=== PATIENT | female | born 1995 | race Caucasian/White ===

== ENCOUNTER 2025-01-01 09:42 | Outpatient (CLI) | payer BC, SELFPAY ==
--- NOTE | ~2025-01-01 | US_ITS ---
EXAMINATION: US OB <=14 wk fetus w TV DATE: 01/01/2025 10:15 INDICATION: Assess viability during first trimester presenting with cramping TECHNIQUE: Real-time pelvic ultrasound utilizing both a transvaginal and transabdominal probe was pe rformed. The interpreting radiologist was not present for the study. COMPARISON: None. FINDINGS: The uterus measures 8.7 x 4.4 x 5.6 cm. There is an intrauterine gestational sac.A yolk sac is ident ified but there is no discernible pole. The mean sac diameter measures 1.2 cm, which correlates with an estimated gestational age of 6 weeks and 0 days. The right ovary measures 2.5 x 1.5 x 1.5 cm. The left ovary measures 3.4 x 2.2 x 2.1 cm. Vascular sachi w identified in both ovaries on color Doppler. There is no free fluid in the pelvis. IMPRESSION: 1. Single intrauterine gestational sac with yolk sac but no discernible pole likely due to aminta y stage of . 2. Gestational age by ultrasound of 6 weeks 0 day(s) +/- 4 day(s) with ultrasound estimated date of delivery (CRAIG) of 08/27/2025. Reviewed, dictated and finalized at location A. RAL OFFICE REPAIRER SUPERVISOR IMPRESSION: 1. Single intrauterine gestational sac with yolk sac but no discernible p ole likely due to early stage of . 2. Gestational age by ultrasound of 6 weeks 0 day(s) +/- 4 day(s) with ultraso und estimated date of delivery (CRAIG) of 08/27/2025.
== END 2025-01-01 09:43 | disposition home or self-care (01) ==
PROVIDERS: PCP Obstetrics & Gynecology; Visit Provider Obstetrics & Gynecology
DX: O26.899 Other specified pregnancy related conditions, unspecified trimester (principal); Z3A.00 Weeks of gestation of pregnancy not specified
CPT/HCPCS: 76801; 76817

== ENCOUNTER 2025-01-08 10:21 | Outpatient (CLI) | payer BC, SELFPAY ==
--- NOTE | ~2025-01-08 | US_ITS ---
EXAMINATION: US OB <=14 wk fetus w TV DATE: 01/08/2025 11:11 INDICATION: Altered for supervision of normal during first trimester. TECHNIQUE: Real-time pelvic ultrasound utilizing both a transvaginal and transabdominal probe was pe rformed. The interpreting radiologist was not present for the study. COMPARISON: 01/01/2025 FINDINGS: The uterus measures 10.6 x 4.5 x 6.7 cm. There is an intrauterine gestational sac. A yolk sac and fe bandar pole are identified. The crown rump length measures 5 mm, which correlates with an estimated gest ational age of 6 weeks and 1 days. There is discernible rhythmic heart motion at the pole on the cine grayscale imaging. The right ovary measures 3.4 x 2.6 x 1.6 cm. The left ovary measures 3.6 x 2.1 x 1.7 cm. There is no free fluid in the pelvis. IMPRESSION: 1. Single living fetus with discernible heart motion on cine grayscale imaging. 2. Gestational age by ultrasound of 6 weeks 1 day(s) +/- 4 day(s) with ultrasound estimated date of delivery (CRAIG) of 09/02/2025. Reviewed, dictated and finalized at location B. CAL TRANSCRIPTION SUPERVISOR IMPRESSION: 1. Single living fetus with discernible heart motion on cine grayscale im aging. 2. Gestational age by ultrasound of 6 weeks 1 day(s) +/- 4 day(s) with ultraso und estimated date of delivery (CRAIG) of 09/02/2025.
== END 2025-01-08 10:22 | disposition home or self-care (01) ==
PROVIDERS: PCP Obstetrics & Gynecology; Visit Provider Student in an Organized Health Care Education/Training Program
DX: Z34.90 Encounter for supervision of normal pregnancy, unspecified, unspecified trimester (principal)
CPT/HCPCS: 76801; 76817

== ENCOUNTER 2025-01-08 16:37 | Outpatient (CLI) | payer BC, SELFPAY ==
[2025-01-08 17:50] LABS: Hematocrit 40.6 % (37.0-47.0); Hemoglobin 13.6 g/dL (12.0-15.0); Mean Corpuscular HGB Conc 33.5 g/dl (32-36); Mean Corpuscular Volume 89.4 fl (80-100); Mean Platelet Volume 8.7 fl (7.4-10.4); Platelet Count Result 301 k/mm3 (150-375); Red Blood Count 4.54 M/mm3 (4.2-5.4); Red Cell Distribution Width 12.2 % (11.5-14.5); White Blood Count 10.1 K/mm3 (4.5-10.0)
--- OUTSIDE RECORDS SUMMARY | 2025-01-08 18:28 | XMS_ITS | Encounter Summary ---
Author Organization [facility] Address [address] [place] [address] Phone Care Team Providers Care Mainframe Applications Developer Name Role Phone Provider, None Primary Care Provider Unavailabl e Encounter Details Date Type Department Care Team (Late st Contact Info) Description 11/22/2023 Lab Requisition [facility] [address] [place] [address] [place] [address] Encounter for pre-employment examination Social History Tobacco Use Types Packs/Day Years Used Date Smoking Tobacco: Never Assessed Comments Unknown Sex and Gender Information Value Date Recorded Sex Assigned at Not on file Legal Sex Female 10:34 AM AIR TRAFFIC CONTROL MANAGER Gender Identity Not on file Sexual Orientation Not on file documented as of this encounter Plan of Treatment Not on file documented as of this encounter Procedures Procedure Name Priority Date/Time Associated Diagnosis Comments QUANTIFERON-TB GOLD PLUS Routine 11/22/2023 10:00 AM AIR TRAFFIC CONTROL MANAGER Encounter for pre-employment examination documented in this encounter Results * QUANTIFERON-TB GOLD PLUS (11/22/2023 10:00 AM AIR TRAFFIC CONTROL MANAGER) NIL CONTROL 0.04 <8.01 IU/mL 11/24/2023 10:27 AM AIR TRAFFIC CONTROL MANAGER [facility] TB ANTIGEN 1 0.34 <0.35 IU/mL 11/24/2023 10:27 AM AIR TRAFFIC CONTROL MANAGER [facility] TB ANTIGEN 2 0.01 <0.35 IU/mL 11/24/2023 10:27 AM [facility] MITOGEN CONTROL 9.96 >0.49 IU/mL 11/24/19 10:27 AM [facility] INTEPRETATION TB NEGATIVE NEGATIVE, NEGATIVE (TB antigen response less than 25% of internal negative control value) 11/24/2023 10:27 AM [facility] Comment:No immune response t o Mycobacterium tuberculosis antigens was noted. M. tuberculosis infection unlikely. Blood No Phlebotomy Charged / Unknown 11/22/2023 10:00 AM [facility] 11/22/2023 1:03 PM AIR TRAFFIC CONTROL MANAGER Narrative [facility] [place] - 11/24/2023 10:27 AM [facility] A POSITIVE QUANTIFERON-TB GOLD PLUS RESULT SHOULD NOT BE THE SOLE OR DEFINITIVE BASIS FOR DETERMINING INFECTION WITH M.TUBERCULOSIS. Diagnosing or excluding tuberculosis disease, and assessing the probability of LTBI, requires a combination of epidemiological, historical, medical and diagnostic findings (e.g., acid fast bacilli (AFB) smear and culture, chest xray) that should be taken into account when interpreting QFT-Plus results. Furthermore, the magnitude of the measured gamma interferon level cannot be correlated to stage or degree of infection, level of immune responsiveness, or likelihood for progression to active disease. The Nil control adjusts for background (e.g., elevated levels of circulating gamma interferon or presence of heterophile antibodies). The Mitogen control serves as an internal positive control and verifies each specimen tested can produce a gamma interferon response. Low mitogen may occur with insufficient lymphocytes, reduced lymphocyte activity due to improper specimen handling, filling/mixing of the mitogen tube, or inability of the patient's lymphocytes to generate gamma interferon. Infection with other Mycobacteria, including M. kansasii, M. szulgai, and M. marinum, may cause false positive results. A negative QuantiFERON-TB Gold Plus result does not preclude the possibility of M. tuberculosis infection or tuberculosis disease: false negative results can be due to incorrect blood sample collection/ improper handling of the specimen, stage of infection (e.g., specimen obtained prior to the development of cellular immune response), co-morbid conditions which affect immune function, or other individual immunological factors. The minimum number of lymphocytes required for a reliable test has not been established and may also be variable. Diagnostic testing for Mycobacterium tuberculosis using Interferon Gamma Release Assays should follow applicable published guidelines, including when testing in populations such as children, women, and HIV-infected or otherwise immunocompromised individuals. https://www.cdc.gov/tb/publications/guidelines/testing.htm us [address] PAC IMMUNOLOGY ORDERABLES Final Result [facility] [address] [place] [address], [place] documented in this encounter Visit Diagnoses Diagnosis Encounter for pre-employment examination Health examination of defined subpopulation documented in this encounter Care Teams Mainframe Applications Developer Relationship Specialty Start Date End Date Provider, None [place] PCP - General 11/22/23 documented as of this encounter
--- OUTSIDE RECORDS SUMMARY | 2025-01-08 18:28 | XMS_ITS | Clinical Summary ---
Author Organization [facility] Address [address] [place] [address] Care Team Providers Care Travel Insurance Agent Name Role Phone Farnaz Brown Primary Care Provider Allergies No known active allergies Medications EPINEPHrine 0.3 MG/0.3ML injection 3 Active melatonin 3 MG tablet Take 1 tablet (3 mg total) by mouth nightly as needed. OTC Active ibuprofen (MOTRIN) 400 MG tablet Take 1 tablet (400 mg total) by mouth every 6 (six) hours as needed for Pain. OTC Active Levocetirizine Dihydrochloride (XYZAL ALLERGY 24HR OR) 4 Active multi vitamin/minerals (THERA-M ENHANCED) tablet Take 1 tablet by mouth daily. Active scopolamine (TRANSDERM-SCOP) 1 MG/3DAYS patchIndications:Mot ion sickness Place 1 patch onto the skin every third day. 10 patch 4 Active Active Problems Problem Noted Date Diagnosed Date Overweight with body mass in dex (BMI) of 28 to 28.9 in adult 08/07/2024 Bipolar 2 disorder ([facility]) 11/11/2016 Anxiety 11/11/2016 Encounters Date Type Department Care Team Description 12/23/2024 MyChart Message Enc [facility] Family & Internal Medicine [address] [address] Farnaz Brown APNP Next Steps Other Than XRay 12/11/2024 Telephone [facility] Medicine [address] [address] Farnaz Brown APNP Lab Results 12/04/2024 7:40 AM ROD AND TUBE STRAIGHTENER Office Visit [facility] Internal [address] [address] Farnaz Brown APNP Physical 12/04/2024 - 12/04/2024 11:59 PM ROD AND TUBE STRAIGHTENER Hospital [facility] [address] [place] [address] Farnaz Brown APNP Discharge Disposition: Home or Self Care (Routine Discharge) 12/04/2024 Travel 11/18/2024 Telephone [facility] [address] [address] Farnaz Brown APNP Information 11/01/2024 Telephone [facility] [address] [address] Farnaz Brown APNP Results 10/29/2024 8:00 AM ROD AND TUBE STRAIGHTENER Office Visit [facility] - [address], [address] [place] [phone] Farnaz Brown APNP Govindarajan, Raghav, MD EMG Testing (BLE*RT. LEG NUMBNESS) 10/29/2024 Travel from Last 3 Months Immunizations Name Administration Dates Next Due FLUCELVAX (ccIIV3, TRIVALENT, 0.5mL) 09/08/2024 Influenza Adult (Generic) 09/24/2023,07/29/2022 MODERNA COVID-19 BIVALENT (1 2+), MRNA, LNP-S, PF 07/29/2022 MODERNA COVID-19 (12+) MRNA, LNP-S, PF, 100 MCG/ 0.5 ML DOSE 09/23/2021,01/22/2021,12/25/2020 [facility]NA COVID-19 (12+), MRNA , LNP-S, PF, 50 MCG/0.5 ML (SPIKEVAX) 09/24/2023 Rabies Vaccine 07/17/2018, 8,07/06/2018, 018 Tdap (Generic) 10/28/2021 Family History Medical History Relation Comments Asthma Father COPD Father Depression Maternal Grandfather Arthritis Maternal Grandmother Asthma Maternal Grandmother Diabetes Maternal Grandmother Alcohol Abuse Mother Depression Mother Mental Health Mother Miscarriages / Stillbirths Mother Mental Health Sister Relation Status Comments Father Maternal Grandfather Maternal Grandmother Mother Sister Social History Tobacco Use Types Packs/Day Years Used Date Smoking Tobacco: Never Passive Smoke Exposure: Past Smokeless Tobacco: Never Tobacco Cessation:Counseling Given: No Alcohol Use Standard Drinks/Week Comments Yes 0 (1 standard drink = 0.6 oz pur e alcohol) PHQ-2 Answer Date Recorded Patient Health Questionnaire-2 Score 0 12/04/2024 Comments No Sex and Gender Information Value Date Recorded Sex Assigned at Female 12/04/2024 7:44 AM ROD AND TUBE STRAIGHTENER Legal Sex Female 12:08 PM ROD AND TUBE STRAIGHTENER Gender Identity Female 12/04/2024 7:44 AM ROD AND TUBE STRAIGHTENER Sexual Orientation Not on file Last Filed Vital Signs Vital Sign Reading Time Taken Comments Blood Pressure 112/68 12/04/2024 7:44 AM ROD AND TUBE STRAIGHTENER Pulse 81 12/04/2024 7:44 AM ROD AND TUBE STRAIGHTENER Temperature 36.2 C (97.2 F) 12/04/2024 7:44 AM ROD AND TUBE STRAIGHTENER Respiratory Rate 16 12/04/2024 7:44 AM ROD AND TUBE STRAIGHTENER Oxygen Saturation 98% 12/04/2024 7:44 AM ROD AND TUBE STRAIGHTENER Inhaled Oxygen Concentration - - Weight 84.3 kg (185 lb 12.8 oz) 12/04/2024 7:44 AM ROD AND TUBE STRAIGHTENER Height 167.6 cm (5' 6 ) 12/04/2024 7:44 AM ROD AND TUBE STRAIGHTENER Body Mass Index 29.99 12/04/2024 7:44 AM ROD AND TUBE STRAIGHTENER Plan of Treatment Upcoming Encounters Date Type Department Care Team (Late st Contact Info) Description 01/15/2025 8:00 AM ROD AND TUBE STRAIGHTENER Laboratory Only [facility] Family & Internal Medicine - [address] [address] Farnaz Brown APNP [address] [place] [address] Health Maintenance Due Date Last Done Comments Cervical Cancer Screening Pap Smear (Age 21 to 29) Every 3 Years 1995 Cervical Cancer Screening 1995 Annual Physical 12/04/2025 12/04/2024 Hepatitis B Vaccines (1 of 3 - 19+ 3-dose series) 12/04/2025 Postponed from 2014 (Awaiting Documentation) DTaP, Tdap and Td Vaccines (2 - Td or Tdap) 10/28/2031 10/28/2021 COVID-19 Vaccine Completed 09/08/2024, 10/2023, 07/29/2022, Additional history exists Influenza Adult Completed 09/08/2024, 09/13, 07/29/2022 Hepatitis C Completed 12/04/2024 PHQ-2 (Physician [place]) Completed 12/04/2024 HPV Vaccines Aged Out No longer eligi ble based on patient's age to complete this topic Meningococcal B Vaccine Aged Out No l onger eligible based on patient's age to complete this topic Meningococcal Vaccine Aged Out No jacoby radha eligible based on patient's age to complete this topic Pneumococcal Vaccine: Pediatrics (0 to 5 Years) and At-Risk Patients (6 to 64 Years) Aged Out No longer eligible based on patient's age to complete this topic RSV Immunizations Under 20 Months Aged Out No longer eligible based on patient's age to complete this topic Procedures Procedure Name Priority Date/Time Associated Diagnosis Comments COLLECTION VENOUS BLOOD VENIPUNCTURE Routine 12/04/2024 8:30 AM ROD AND TUBE STRAIGHTENER General medical exam BMI 29.0-29.9,adult Need for hepatitis C screening test Paresthesias COMPREHENSIVE METABOLIC PANEL Routine 12/04/2024 8:30 AM ROD AND TUBE STRAIGHTENER General medical exam CBC W/DIFF AUTOMATED Routine 12/04/2024 8:30 AM ROD AND TUBE STRAIGHTENER General medical exam LIPID PANEL Routine 12/04/2024 8:30 AM ROD AND TUBE STRAIGHTENER General medical exam TSH W/REFLEX Routine 12/04/2024 8:30 AM ROD AND TUBE STRAIGHTENER General medical exam HEPATITIS C ANTIBODY Routine 12/04/2024 8:30 AM ROD AND TUBE STRAIGHTENER General medical exam BMI 29.0-29.9,adult Need for hepatitis C screening test VITAMIN B-12 Routine 12/04/2024 8:30 AM ROD AND TUBE STRAIGHTENER Paresthesias EMG Routine 10/29/2024 8:00 AM ROD AND TUBE STRAIGHTENER Right leg numbness from Last 3 Months Results * TSH W/REFLEX (12/04/2024 8:30 AM ROD AND TUBE STRAIGHTENER) TSH 1.863 0.358 - 3.740 uIU/ML 12/04/2024 4:13 PM ROD AND TUBE STRAIGHTENER [facility] 12/04/2024 8:30 AM ROD AND TUBE STRAIGHTENER [facility] Final Resul t Performing Organization Address City/[facility]/ZIP Co de Phone Number [address] [address], * VITAMIN B-12 (12/04/2024 8:30 AM ROD AND TUBE STRAIGHTENER) VITAMIN B12 S/P/B 872 193 - 986 PG/ML 12/04/2024 4:13 PM ROD AND TUBE STRAIGHTENER [facility] 12/04/2024 8:30 AM ROD AND TUBE STRAIGHTENER [facility] Final Resul t Performing Organization Address City/[facility] Co de Phone Number [facility] [address] [place] [address], * (ABNORMAL) COMPREHENSIVE METABOLIC PANEL (12/04/2024 8:30 AM ROD AND TUBE STRAIGHTENER) SODIUM S/P/B 139 136 - 145 MMOL/L 12/04/2024 4:13 PM ROD AND TUBE STRAIGHTENER [facility] POTASSIUM S/P/B 4.3 3.5 - 5.1 MMOL/L 12/04/2024 4:13 PM [facility] CHLORIDE S/P/B 102 98 - 107 MMOL/L 12/04/2024 4:13 PM [facility] CO2 27.7 21 - 32 MMOL/L 12/04/2024 4:13 PM [facility] GLUCOSE 86 70 - 99 MG/DL 12/04/2024 4:13 PM [facility] BUN 9 7 - 18 MG/DL 12/04/2024 4:13 PM [facility] CREATININE S/P/B 0.66 0.55 - 1.02 MG/DL 12/04/2024 4:13 PM [facility] CALCIUM S/P/B 8.8 8.4 - 10.5 MG/DL 12/04/2024 4:13 PM [facility] BILIRUBIN TOTAL S/P/B 0.3 0.2 - 1.0 MG/DL 12/04/2024 4:13 PM [facility] ALKALINE PHOSPHATASE S/P/B 50 37 - 98 U/L 12/04/2024 4:13 PM [facility] AST 12(L) 15 - 37 U/L 12/04/2024 4:13 PM [facility] ALT 12(L) 14 - 59 U/L 12/04/2024 4:13 PM [facility] TOTAL PROTEIN S/P/B 6.7 6.4 - 8.2 G/DL 12/04/2024 4:13 PM [facility] ALBUMIN S/P/B 4.0 3.4 - 5.0 G/DL 12/04/2024 4:13 PM [facility] ANION GAP 9.3 5 - 15 MMOL/L 12/04/2024 4:13 PM [facility] Comment:REFERENCE RANGE NOT ESTABLISHED OSMOLALITY (CALC) 286 MOSM/KG 025 4:13 PM ROD AND TUBE STRAIGHTENER [facility] Comment:REFERENCE RANGE NOT ESTABLISHED GFR ESTIMATE >90 >90 ML/MIN/1. 73 M2 12/04/2024 4:13 PM [facility] GFR NOTES GFR REFERENCE S: 12/04/2024 4:13 PM ROD AND TUBE STRAIGHTENER [facility] Comment: THE ESTIMATED GFR IS CALCULATED USING THE 2020 CKD-EPI EQUATION. THE FOLLOWING CATEGORIES FOR GRADING RENAL FUNCTION ARE RECOMMENDED BY THE INTERNATIONAL SOCIETY OF NEPHROLOGY (KDIGO 2012 CLINICAL PRACTICE GUIDELINE). G1,NORMAL OR HIGH: >89 ml/min/1.73 m2 G2,MILDLY DECREASED: 60-89 ml/min/1.73 m2 G3A,MILDLY TO MODERATELY DECREASED: 45-59 ml/min/1.73 m2 G3B,MODERATELY TO SEVERELY DECREASED: 30-44 ml/min/1.73 m2 G4,SEVERELY DECREASED: 15-29 ml/min/1.73 m2 G5,KIDNEY FAILURE: <15 ml/min/1.73 m2 12/04/2024 8:30 AM ROD AND TUBE STRAIGHTENER us [facility] Final Resul t [facility] [address] [place] [address], * (ABNORMAL) LIPID PANEL (12/04/2024 8:30 AM ROD AND TUBE STRAIGHTENER) CHOLESTEROL 181 <200 MG/DL 12/04/2024 4:13 PM ROD AND TUBE STRAIGHTENER [facility] TRIGLYCERIDES 43 <150 MG/DL 12/04/2024 4:13 PM [facility] HDL 56 >40 MG/DL 12/04/2024 4:13 PM [facility] LDL-C 116(H) <100 MG/DL 12/04/2024 4:13 PM [facility] VLDL CALCULATION 9 5 - 28 MG/DL 12/04/2024 4:13 PM [facility] CHOL/HDL RATIO 3.2 0.0 - 4.0 12/04/2024 4:13 PM ROD AND TUBE STRAIGHTENER [facility] LDL/HDL 2.1 0.41 - 2.13 12/04/2024 4:13 PM ROD AND TUBE STRAIGHTENER [facility] NON HDL CHOLESTEROL 125 <140 MG/DL 12/04/2024 4:13 PM ROD AND TUBE STRAIGHTENER [facility] 12/04/2024 8:30 AM ROD AND TUBE STRAIGHTENER Farnaz Stephanie [facility] Final Resul t Performing Organization Address City/[facility]/ZIP Co de Phone Number [facility] [address] [place] [address], [place] [phone] * HEPATITIS C AB ([facility] ONLY) (12/04/2024 8:30 AM ROD AND TUBE STRAIGHTENER) HEPATITIS C AB NON-REACTI VE NON-REACT EJ 12/05/2024 10:03 PM ROD AND TUBE STRAIGHTENER [facility] Comment: ANTIBODIES TO HCV NOT DETECTED. DOES NOT EXCLUDE THE POSSIBILITY OF EXPOSURE TO HCV. 12/04/2024 8:30 AM ROD AND TUBE STRAIGHTENER [facility] Final Resul t [facility] [address] [place] [address], [place] [phone] * CBC W/DIFF AUTOMATED (12/04/2024 8:30 AM ROD AND TUBE STRAIGHTENER) WBC 5.58 4.00 - 10.80 x10'3/uL 12/04/2024 3:04 PM ROD AND TUBE STRAIGHTENER [facility] RBC 4.49 4.10 - 5.40 x10'6/uL 12/04/2024 3:04 PM ROD AND TUBE STRAIGHTENER [facility] HGB 13.4 12.0 - 16.0 G/DL 12/04/2024 3:04 PM [facility] HCT 40.1 36.0 - 47.0 % 12/04/2024 3:04 PM [facility] MCV 89.3 78.0 - 100.0 FL 12/04/2024 3:04 PM [facility] MCH 29.8 27.0 - 31.0 PG 12/04/2024 3:04 PM [facility] MCHC 33.4 33.0 - 36.0 G/DL 12/04/2024 3:04 PM [facility] RDW 11.8 11.5 - 14.5 % 12/04/2024 3:04 PM [facility] PLT 283 150 - 350 x10'3/uL 12/04/2024 3:04 PM [facility] MPV 9.7 7.4 - 10.4 FL 12/04/2024 3:04 PM [facility] DIFFERENTIAL TYPE AUTOMATED DIFFERENTIAL 12/04/2024 3:04 PM [facility] NEUTROPHILS % 52.3 % 12/04/2024 3:04 PM [facility] LYMPHOCYTES % 31.7 % 12/04/2024 3:04 PM [facility] MONOCYTES % 11.3 % 12/04/2024 3:04 PM [facility] EOSINOPHILS % 3.8 % 12/04/2024 3:04 PM [facility] BASOPHILS % 0.7 % 12/04/2024 3:04 PM [facility] IMMATURE GRANS % 0.2 % 12/04/2024 3:04 PM [facility] ABS. NEUTROPHILS 2.92 1.60 - 8.30 x10'3/uL 12/04/2024 3:04 PM [facility] ABS. LYMPHOCYTES 1.77 0.80 - 4.70 x10'3/uL 12/04/2024 3:04 PM ROD AND TUBE STRAIGHTENER [facility] ABS. MONOCYTES 0.63 0.00 - 1.50 x10'3/uL 12/04/2024 3:04 PM ROD AND TUBE STRAIGHTENER [facility] ABS. EOSINOPHILS 0.21 0.00 - 0.40 x10'3/uL 12/04/2024 3:04 PM ROD AND TUBE STRAIGHTENER [facility] ABS. BASOPHILS 0.04 0.00 - 0.20 x10'3/uL 12/04/2024 3:04 PM ROD AND TUBE STRAIGHTENER [facility] ABS. IMMATURE GRANULOCYTES 0.01 0.00 - 0.03 x10'3/uL 12/04/2024 3:04 PM ROD AND TUBE STRAIGHTENER [facility] 12/04/2024 8:30 AM ROD AND TUBE STRAIGHTENER us [facility] Final Resul t [facility] [address] [place] [address], * NCVS\EMG (OFallon) (10/29/2024 8:00 AM ROD AND TUBE STRAIGHTENER) Narrative Maicol Aviles MD - 10/29/2024 8:00 AM ROD AND TUBE STRAIGHTENER Maicol Aviles MD 10/30/2024 1:47 AM .Brief history: Ms. Ybarra has patchy area of numbness and tingling along the right lateral aspect of her thigh. She has low back pain. Sometimes the back pain can go down her leg, most often is localized. This area of patchy numbness, tingling is not connected to her back issues. Limited Neurological Exam: Strength in the lower limb is 5 out of 5. Reflexes are 2+ and symmetric. Plantars are downgoing. Vibration is 8 out of 8 on the feet. There is loss of temperature sensation along the right lateral aspect of the thigh Electrodiagnostic testing: For sensory nerve conduction studies, the amplitude is measured [id number], the latency reported is the distal peak latency, and the conduction velocity, if measured, is determined from onset latencies and is over the limb For motor nerve conduction studies, the amplitude is measured [id number], the latency reported is the distal onset latency, the conduction velocity is calculated over the limb, and the F wave latency is the minimum latency. Unless otherwise noted, the limb temperature was monitored continuously and remained between 32 C and 36 C during the performance of the NCSs.The study was performed with a concentric needle electrode. Fibrillation and fasciculation activity is graded from none (0) to continuous (4+). The configuration and recruitment pattern of motor unit action potentials under voluntary control, if not normal, are described below. Abbreviations: NCS= nerve conduction study SNAP= sensory nerve action potential CMAP= compound muscle action potential MUP= motor unit potential EMG= electromyogram F IBS= fibrillations PS W's= positive sharp waves Summary of findings: Bilateral peroneal motor NCS shows small CMAP amplitude Bilateral tibial motor NCS is normal Left sural sensory NCS is absent Right sural, bilateral superficial peroneal sensory NCS is normal Needle EMG of the right lower limb is normal Conclusion: The study shows no electrodiagnostic evidence of a lumbosacral radiculopathy or a large fiber neuropathy. Nerve conduction and EMG is an extension of history and examination. Clinical correlation is recommended for the electrodiagnostic findings. [facility] Final Result from Last 3 Months Insurance [facility] Care Teams Travel Insurance Agent Relationship Specialty Start Date End Date Farnaz Brown APNP [address] [place] [address] [phone] PCP - General 12/06/23
--- OUTSIDE RECORDS SUMMARY | 2025-01-08 18:28 | XMS_ITS ---
Author Organization [facility] Address [address] [place], [place] [address] [address] Care Team Providers Care Track Equipment Operator Name Role Phone Farnaz Brown Primary Care Provider Kandis West Unavailable [phone] REASON FOR VISIT and allergy shots Encounters Encounter Location Date Provider Diagnosis [facility] [address] [place] [address] 01/08/2025 Kandis Pedersen Plan Of Treatment Next Appt Details Provider Name:Kandis mccurdy, 01/22/2025 12:30:00 PM, 2022 [facility], [address], [address], Provider Name:Kandis mccurdy, 06/04/2025 01:00:00 PM, 2022 [facility], [address], [address], Progress Notes * Constantine YBARRAB:1995 ([age] yo F)Acc No.[id number]:01/08/2025 Patient: Rosmery CANTRELLa :1995 A ge:29 Y S ex:Female Address:[address] [place] [address] * * Date:
--- OUTSIDE RECORDS SUMMARY | 2025-01-08 18:28 | XMS_ITS | Clinical Summary ---
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 Gender Identity Not on file Sexual Orientation Not on file Plan of Treatment Health Maintenance Due Date Last Done Comments Hepatitis C Virus (HCV) Screening 1995 Hepatitis B Immunization (1 of 3 - 19+ 3-dose series) 2014 Pap Smear 2016 Influenza Immunization (#1) 2024 09/24/2023, 0 07/29/2022 SARS-COV-2 Immunization ( season) 2024 09/24/2023, 07/29/2022, 09/23/2021, Additional history exists Respiratory Syncytial Virus (RSV) Immunization (Adult) (1 - 1-dose 75+ series) 2070 DTaP/Tdap/Td Immunization Discontinued 10/28/2021 TdaP Immunization Completed 10/28/2021 Meningococcal Immunization (ACWY) Aged Out No longer eligible based on patient's age to complete this topic Pneumococcal Immunization Combined Aged Out No longer eligible based on patient's age to complete this topic Rotavirus Immunization Aged Out No lo nger eligible based on patient's age to complete this topic Care Teams Brush Stainer Relationship Specialty Start Date End Date Provider, None [place] PCP - General 11/22/23
--- OUTSIDE RECORDS SUMMARY | 2025-01-08 18:28 | XMS_ITS | Encounter Summary ---
Author Organization [facility] Address [address] [place] [address] Care Team Providers Care Carbon Furnace Operator Helper Name Role Phone Farnaz Brown Primary Care Provider [phone] Encounter Details Date Type Department Care Team (Late st Contact Info) Description 05/13/2024 MyChart Message Enc [facility] Family [facility] [address], [address] [place] [address] [place] [address] [address] Start Metformin Social History Tobacco Use Types Packs/Day Years Used Date Smoking Tobacco: Never Passive Smoke Exposure: Past Smokeless Tobacco: Never Alcohol Use Standard Drinks/Week Comments Yes 0 (1 standard drink = 0.6 oz pur e alcohol) PHQ-2 Answer Date Recorded Patient Health Questionnaire-2 Score 0 12/06/2023 Comments No Sex and Gender Information Value Date Recorded Sex Assigned at Female 12/04/2024 7:44 AM PLANER FEEDER Legal Sex Female 12:08 PM PLANER FEEDER Gender Identity Female 12/04/2024 7:44 AM PLANER FEEDER Sexual Orientation Not on file documented as of this encounter Plan of Treatment Upcoming Encounters Date Type Department Care Team (Late st Contact Info) Description 01/15/2025 8:00 AM PLANER FEEDER Laboratory Only [facility] Family & Internal Medicine [address] [address] Farnaz Brown APNP [address] [place] [address] documented as of this encounter Visit Diagnoses Not on filedocumented in this encounter Care Teams Carbon Furnace Operator Helper Relationship Specialty Start Date End Date Farnaz Brown APNP [address] [place] [address] PCP - General 12/06/23 documented as of this encounter
--- OUTSIDE RECORDS SUMMARY | 2025-01-08 18:28 | XMS_ITS | Encounter Summary ---
Author Organization [facility] Address [address] [place] [address] Care Team Providers Care Microsoft Dynamics Developer Name Role Phone Farnaz Brown Primary Care Provider Encounter Details Date Type Department Care Team (Late st Contact Info) Description 09/02/2024 DubMeNowhart Message Enc [facility] Family & Internal Medicine [facility] [address] [place] [address] Farnaz Brown APNP [address] [place] [address] Refill Scopolamine Social History Tobacco Use Types Packs/Day Years Used Date Smoking Tobacco: Never Passive Smoke Exposure: Past Smokeless Tobacco: Never Alcohol Use Standard Drinks/Week Comments Yes 0 (1 standard drink = 0.6 oz pur e alcohol) PHQ-2 Answer Date Recorded Patient Health Questionnaire-2 Score 0 12/06/2023 Comments No Sex and Gender Information Value Date Recorded Sex Assigned at Female 12/04/2024 7:44 AM OCCUPATIONAL THERAPY ASSISTANT Legal Sex Female 12:08 PM OCCUPATIONAL THERAPY ASSISTANT Gender Identity Female 12/04/2024 7:44 AM OCCUPATIONAL THERAPY ASSISTANT Sexual Orientation Not on file documented as of this encounter Progress Notes * MARY LOU Garcia - 09/03/2024 4:46 PM CDT Meds filled documented in this encounter Plan of Treatment Upcoming Encounters Date Type Department Care Team (Late st Contact Info) Description 01/15/2025 8:00 AM OCCUPATIONAL THERAPY ASSISTANT Laboratory Only [facility] Family & Internal Medicine - [place] [address] [place] [address] Farnaz Brown APNP [address] [place] [address] documented as of this encounter Visit Diagnoses Diagnosis Motion sickness- Primary documented in this encounter Care Teams Microsoft Dynamics Developer Relationship Specialty Start Date End Date Farnaz Brown APNP [address] [place] [address] PCP - General 12/06/23 documented as of this encounter
[2025-01-08 18:44] LABS: HIV 1/2 Ab P24 Ag Result Negative (Negative)
[2025-01-08 18:48] LABS: Syphilis IgG/IgM Antibody Negative (Negative)
[2025-01-08 18:55] LABS: Hepatitis B Surface Antigen Negative (Negative); Rubella IgG Antibody 25.3 IU/ML
[2025-01-09 07:19] LABS: CMV IgG Antibody <0.60 U/mL; Varicella IgG Antibody 7.11 S/CO
== END 2025-01-08 16:38 | disposition home or self-care (01) ==
LOC: ANHLAB 16:39
PROVIDERS: PCP Registered Nurse; Visit Provider Student in an Organized Health Care Education/Training Program
DX: N91.2 Amenorrhea, unspecified (principal)
CPT/HCPCS: 36415; 81220; 81329; 84702; 85027; 86593; 86644; 86703; 86747; 86762; 86787; 86850; 86900; 86901; 87086; 87340; G0432

== ENCOUNTER 2025-02-07 01:00 | Day surgery (SDC) | payer BC, SELFPAY ==
--- NOTE | 2025-02-06 13:39 | PC.NURSE ---
Report to the Outpatient Waiting Room, entrance under the green pavilion located off [facility], at time __1130 on date __02/07/25 . Planned Procedure Time: __1330 .? Time changes happen often and if your time is changed the preop area will call you the afternoon before. - You and your visitor will be asked to self-screen and do not enter if you have any COVID symptoms. Please call surgeon if you need to reschedule. - A mask is optional within the hospital at this time. Patients may have clear liquids (water, carbonated beverages, clear teas, apple juice) until 3 hours prior to surgery (1030) with a maximum of 20 ounces. - No food from midnight until time of surgery and no smoking, or chewing tobacco (or any form of nicotine). No chewing gum, candy or mints. - Take only the following medications with a SIP of water on the morning of surgery: NONE DO NOT STOP ANY OF YOUR OTHER PRESCRIPTION MEDICATIONS PRIOR TO SURGERY EXCEPT THE FOLLOWING Hold all vitamins and supplements for 3 days per anesthesiologist. Medications to discontinue per physician Date to take last dose Please no make-up, nail faroese, hairspray, perfume, deodorant, or body powder the day of surgery.? No jewelry (including any body piercings) or valuables the day of surgery, leave them at home.? Please take a shower or bath the night before, or the morning of, surgery with an antibacterial soap.? Wear comfortable, loose fitting clothing.? Children are encouraged to wear pajamas. - Jewelry must be removed prior to entering the operating room.? Rings and piercings that are not removed may be cut off. - The hospital will not accept responsibility for valuables.? - Please leave all valuables, including medications, at home the day of surgery. If you are going home after surgery, a licensed road driver must drive you home.? - NO public transportation without another adult if you receive anesthesia. - We recommend that an adult stay with you for 24 hours following discharge. - We also recommend that you do not drive, make important decision, drink alcoholic beverages, or take any drugs that were not prescribed by your health care provider for at least 24 hours after your discharge time. Follow any additional instructions given to you from your surgeon. Telephone instructions given to ___PATIENT and asked if any additional questions and then verbalized understanding. Patient advised to call surgeon office or pre surgery nurse liaison [phone] if any additional questions.
[2025-02-06 13:43] VITALS: BMI 29.0
--- OUTSIDE RECORDS SUMMARY | 2025-02-07 01:03 | XMS_ITS | Clinical Summary ---
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
--- OUTSIDE RECORDS SUMMARY | 2025-02-07 01:03 | XMS_ITS ---
Author Organization [facility] Address [address] [place] [address] Care Team Providers Care Salvage Determiner Name Role Phone Farnaz Brown Primary Care Provider Kandis West Unavailable [phone] REASON FOR VISIT SCIT - Traditional Schedule Allergy immunotherapy Medications Medication SIG (Take, Route, Fr equency, Duration) Notes Start Date End Date Status EPINEPHRINE AUTO-INJECTOR 0.3 mg as directed intramuscularly once for 1 days Active Xyzal Allergy 24HR 5 MG 1 tablet in the evening Orally Once a day Active Xyzal Allergy 24HR 5 MG 1 tablet in the evening Orally Once a day for 30 days 01/08/2025 Active Encounters Encounter Location Date Provider Diagnosis [facility] [address] [facility] [address] [place] [phone] 01/22/2025 Kandis Pedersen Allergic rhinitis du e to pollen J30.1 ; Allergic rhinitis due to animal (cat) (dog) hair and dander J30.81 ; Other allergic rhinitis J30.89 and Other chronic allergic conjunctivitis H10.45 Assessments Encounter Date Diagnosis (ICD Code) Assessment Notes Treatment Notes Treatment Clinical Notes Section Notes 01/22/2025 Allergic rhinitis due to pollen (ICD-10 - J30.1) 01/22/2025 Allergic rhinitis due to animal (cat) (dog) hair and dander (ICD-10 - J30.81) 01/22/2025 Other allergic rhinitis (ICD-10 - J30.89) 01/22/2025 Other chronic allergic conjunctivitis (ICD-10 - H10.45) Plan Of Treatment Next Appt Details Follow Up: 1 Week, Reason: Provider Name:Kandis mccurdy, 02/19/2025 12:30:00 PM, 2022 [facility], [address] [place] [address], [phone], Provider Name:Kandis mccurdy, 06/04/2025 01:00:00 PM, 2022 [facility], Suite [facility], [place], [address], Progress Notes * Rosmery YBARRAaDOB:1995 ([age] yo F)Acc No.[id number]:01/22/2025 SCIT-Aeroallergen Patient: Mari CANTRELL Provider: Kailash Pedersen MD :1995 A ge:29 Y S ex:Female Date:01/22/2025 Address:[address] [place], [place] [phone] Pcp:Farnaz Brown Subjective: * Chief Complaints: * S CIT - Traditional Schedule Allergy immunotherapy * HPI: * Introduction: The patient is here for scheduled immunotherapy. Please see the attached specialty form regarding the specifics of the administration of these vaccines. As per our protocol, they must undergo a screening health questionnaire (medication changes, reaction(s) to last immunotherapy dose(s), current health status, ACT (if appropriate), self-injectable epinephrine on patient(?) and peak flow (if appropriate)). Also, the patient must wait in our office for 30 minutes after receiving the vaccine(s). Furthermore, every patient must have an epinephrine pen (self-injectable) with them at the time of administration--and carry if for the following 1.5 hours after they leave our office. The patient must also have taken their antihistamine the day of the injection, preferably 2 hours prior. The consent form for SCIT (subcutaneous immunotherapy) is on file. * Medical History: * Surgical History: * Hospitalization/Major Diagno stic Procedure: * Medications: T akingEPINEPHRINE AUTO-INJECTOR 0.3 mg kit as directed intramuscularly once Xyzal Allergy 24HR 5 MG Tablet 1 tablet in the evening Orally Once a day Xyzal Allergy 24HR 5 MG Tablet 1 tablet in the evening Orally Once a day Taking EPINEPHRINE AUTO-INJECTOR 0.3 mg kit as directed intramuscularly once Taking Xyzal Allergy 24HR 5 MG Tablet 1 tablet in the evening Orally Once a day Taking Xyzal Allergy 24HR 5 MG Tablet 1 tablet in the evening Orally Once a day Objective: * Vitals: Assessment: * Assessment: 1. A llergic rhinitis due to pollen - J30.1 (Primary) 2 . A llergic rhinitis due to animal (cat) (dog) hair and dander - J30.81 3 . O ther allergic rhinitis - J30.89 4 . O ther chronic allergic conjunctivitis - H10.45 Plan: * Treatment: * Procedure Codes: 9 5117 IMMUNOTHERAPY INJECTIONS * Preventive Medicine: Counseling: E xercise A void heavy lifting on days of allergy immunotherapy. M edication instruction: I njectable epinephrine education and instruction w/ discussion of signs and symptoms of anaphylaxis and reasons to seek urgent or emergent care, Watch for side effects of prescribed medications. E ducation: A ble to return demonstration of self-injectable epinephrine. * Follow Up: 1 Week * Billing Information: * Visit Code: * Procedure Codes: 64997 IMMUNOTHERAPY INJECTIONS. * Sign off status: Completed true * Provider: Kailash Pedersen MD Date: 0 01/22/2025 Generated for Azeb tejada/Samson/Syitting on: 02/07/2025 01:03 AM CDT History and Physical Notes * HPI (History of Present Illness) Category Sub-Category Detail Notes Category Not es *Introduction The patient is here for scheduled immunotherapy. Please see the attached specialty form regarding the specifics of the administration of these vaccines. As per our protocol, they must undergo a screening health questionnaire (medication changes, reaction(s) to last immunotherapy dose(s), current health status, ACT (if appropriate), self-injectable epinephrine on patient(?) and peak flow (if appropriate)). Also, the patient must wait in our office for 30 minutes after receiving the vaccine(s). Furthermore, every patient must have an epinephrine pen (self-injectable) with them at the time of administration--and carry if for the following 1.5 hours after they leave our office. The patient must also have taken their antihistamine the day of the injection, preferably 2 hours prior. The consent form for SCIT (subcutaneous immunotherapy) is on file.
--- OUTSIDE RECORDS SUMMARY | 2025-02-07 01:03 | XMS_ITS | Encounter Summary ---
Author Organization [facility] Address [address] [place] [address] Phone Care Team Providers Care Websphere Consultant Name Role Phone Provider, None Primary Care Provider Unavailabl e Encounter Details Date Type Department Care Team (Late st Contact Info) Description 11/22/2023 Lab Requisition [facility] [address] [place] [address] [place] [address] Encounter for pre-employment examination Social History Tobacco Use Types Packs/Day Years Used Date Smoking Tobacco: Never Assessed Comments Unknown Sex and Gender Information Value Date Recorded Sex Assigned at Not on file Legal Sex Female 10:34 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 Gender Identity Not on file Sexual Orientation Not on file documented as of this encounter Plan of Treatment Not on file documented as of this encounter Procedures Procedure Name Priority Date/Time Associated Diagnosis Comments QUANTIFERON-TB GOLD PLUS Routine 11/22/2023 10:00 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 Encounter for pre-employment examination documented in this encounter Results * QUANTIFERON-TB GOLD PLUS (11/22/2023 10:00 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) NIL CONTROL 0.04 <8.01 IU/mL 11/24/2023 10:27 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 [facility] TB ANTIGEN 1 0.34 <0.35 IU/mL 11/24/2023 10:27 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 [facility] TB ANTIGEN 2 0.01 <0.35 IU/mL 11/24/2023 10:27 AM [facility] MITOGEN CONTROL 9.96 >0.49 IU/mL 11/24/19 10:27 AM [facility] INTEPRETATION TB NEGATIVE NEGATIVE, NEGATIVE (TB antigen response less than 25% of internal negative control value) 11/24/2023 10:27 AM [facility] Comment:No immune response t o Mycobacterium tuberculosis antigens was noted. M. tuberculosis infection unlikely. Blood No Phlebotomy Charged / Unknown 11/22/2023 10:00 AM [facility] 11/22/2023 1:03 PM MEDICAL VIDEOGRAPHER Narrative [facility] - 11/24/2023 10:27 AM [facility] A POSITIVE QUANTIFERON-TB GOLD PLUS RESULT [...] Way PAC IMMUNOLOGY ORDERABLES Final Result [facility] [address] [place] [address], [place] documented in this encounter Visit Diagnoses Diagnosis Encounter for pre-employment examination Health examination of defined subpopulation documented in this encounter Care Teams Websphere Consultant Relationship Specialty Start Date End Date Provider, None [place] PCP - General 11/22/23 documented as of this encounter
--- OUTSIDE RECORDS SUMMARY | 2025-02-07 01:04 | XMS_ITS | Patient Health Record ---
Author Organization [facility] Address [address] [place] [address] Care Team Providers Care Paperback Machine Operator Name Role Phone Stephanie Farnaz Primary Care Provider UnavailKandis Collins Unavailable [phone] [employer], Provider Unavailable Unavailab le Allergies No Known Allergies Reason For Referral No Information Medications Medication SIG (Take, Route, Fr equency, Duration) Notes Start Date End Date Status EPINEPHRINE AUTO-INJECTOR 0.3 mg as directed intramuscularly once for 1 days Active Xyzal Allergy 24HR 5 MG 1 tablet in the evening Orally Once a day Active Xyzal Allergy 24HR 5 MG 1 tablet in the evening Orally Once a day for 30 days 01/08/2025 Active Immunizations Vaccine Route Administration Date Status Comme nts Allergy Immunotherapy Weekly Unknown 03/24/2023 Administered Portal Informati on Social History Tobacco Use: Social History Observation Description Date Details (start date - stop date) Never Smoker NA - NA Smoking Smart Form: Question Answer Notes Are you a: never smoker Tobacco Control (Standard) Question Answer Notes Tobacco use: Nonsmoker Problems Problem Type SNOMED Code ICD Code Onset Dates Problem Status W/U Status Risk Notes Problem Chronic allergic conjunctivitis (65748026) Other chronic allergic conjunctivitis (H10.45) Active confirmed Problem Allergic rhinitis caused by pollen (disorder) (73760276) Allergic rhinitis due to pollen (J30.1) Active confirmed Problem Allergic rhinitis caused by animal hair and dander (962005523017500) Allergic rhinitis due to animal (cat) (dog) hair and dander (J30.81) Active confirmed Problem Allergic rhinitis (58838208) Other allergic rhinitis (J30.89) Active confirmed Problem Allergic rhinitis caused by animal hair and dander (103485846572134) Allergic rhinitis due to animal (cat) (dog) hair and dander (J30.81) Active confirmed Vital Signs Oximetry 100 % 01/08/2025 Blood pressure diastolic 73 mm Hg 01/08/2025 Height 67 in 01/08/2025 Blood pressure systolic 106 mm Hg 01/08/2025 Weight 185.0 lbs 01/08/2025 BMI 28.97 kg/m2 01/08/2025 Encounters Encounter Location Date Provider Diagnosis [address] [address] 02/14/2024 Kandis Pedersen [facility] [address] [place] [address] [employer] [address] [address] 02/21/2024 Kandis Pedersen [address] [address] 12/05/2024 Kandis Pedersen [address] [address] 01/08/2025 Kandis Pedersen [address] [address] 01/15/2025 Kandis Pedersen [facility] [address] [place] [address] 01/08/2025 Kandis Pedersen Allergic rhinitis du e to pollen J30.1 ; Allergic rhinitis due to animal (cat) (dog) hair and dander J30.81 ; Other allergic rhinitis J30.89 and Other chronic allergic conjunctivitis H10.45 [facility] [address] [place], [place] [address] [address] [address] 03/20/2024 Kandis Pedersen Allergic rhinitis du e to pollen J30.1 ; Allergic rhinitis due to animal (cat) (dog) hair and dander J30.81 ; Other allergic rhinitis J30.89 and Other chronic allergic conjunctivitis H10.45 [facility] [address] [place], [place] [address] [address] [address] 04/10/2024 Kandis Pedersen Allergic rhinitis du e to pollen J30.1 ; Allergic rhinitis due to animal (cat) (dog) hair and dander J30.81 ; Other allergic rhinitis J30.89 and Other chronic allergic conjunctivitis H10.45 [facility] [address] [facility] [address] [place] [phone] 05/08/2024 Kandis Pedersen Allergic rhinitis du e to pollen J30.1 ; Allergic rhinitis due to animal (cat) (dog) hair and dander J30.81 ; Other allergic rhinitis J30.89 and Other chronic allergic conjunctivitis H10.45 [facility] [address] [place], [place] [address] [address] [place] [phone] 06/05/2024 Kandis Peedrsen Allergic rhinitis du e to pollen J30.1 ; Allergic rhinitis due to animal (cat) (dog) hair and dander J30.81 ; Other allergic rhinitis J30.89 and Other chronic allergic conjunctivitis H10.45 [facility] [address] [place], [place] [address] [address] [place] [address] 07/03/2024 Kandis Pedersen Allergic rhinitis du e to pollen J30.1 ; Allergic rhinitis due to animal (cat) (dog) hair and dander J30.81 ; Other allergic rhinitis J30.89 and Other chronic allergic conjunctivitis H10.45 [facility] [address] [place], [place] [address] [address] [place] [phone] 07/31/2024 Kandis Pedersen Allergic rhinitis du e to pollen J30.1 ; Allergic rhinitis due to animal (cat) (dog) hair and dander J30.81 ; Other allergic rhinitis J30.89 and Other chronic allergic conjunctivitis H10.45 [facility] [address] [place], [place] [address] [address] [place] [phone] 08/27/2024 Kandis Pedersen Allergic rhinitis du e to pollen J30.1 ; Allergic rhinitis due to animal (cat) (dog) hair and dander J30.81 ; Other allergic rhinitis J30.89 and Other chronic allergic conjunctivitis H10.45 [facility] [address] [place], [place] [address] [address] [place] [address] 09/25/2024 Kandis Pedersen Allergic rhinitis du e to pollen J30.1 ; Allergic rhinitis due to animal (cat) (dog) hair and dander J30.81 ; Other allergic rhinitis J30.89 and Other chronic allergic conjunctivitis H10.45 [facility] [address] [place], [place] [address] [address] [place] [phone] 10/29/2024 Kandismarjroie Motam Allergic rhinitis du e to pollen J30.1 ; Allergic rhinitis due to animal (cat) (dog) hair and dander J30.81 ; Other allergic rhinitis J30.89 and Other chronic allergic conjunctivitis H10.45 [facility] [address] [place] [address] [employer] [address] [place] [phone] 11/27/2024 Kandismarjorie Motam Allergic rhinitis du e to pollen J30.1 ; Allergic rhinitis due to animal (cat) (dog) hair and dander J30.81 ; Other allergic rhinitis J30.89 and Other chronic allergic conjunctivitis H10.45 [facility] [address] [place] [address] [employer] [address] [place] [phone] 01/01/2025 Kandismarjorie Motam Allergic rhinitis du e to pollen J30.1 ; Allergic rhinitis due to animal (cat) (dog) hair and dander J30.81 ; Other allergic rhinitis J30.89 and Other chronic allergic conjunctivitis H10.45 [facility] [address] [place] [address] 01/22/2025 Kandis Motam Allergic rhinitis du e to pollen J30.1 ; Allergic rhinitis due to animal (cat) (dog) hair and dander J30.81 ; Other allergic rhinitis J30.89 and Other chronic allergic conjunctivitis H10.45 [facility] [address] [place], [place] [address] [address] [place] [phone] 03/07/2024 Kandis Slava Allergic rhinitis du e to pollen J30.1 ; Allergic rhinitis due to animal (cat) (dog) hair and dander J30.81 ; Other allergic rhinitis J30.89 and Other chronic allergic conjunctivitis H10.[address] [address] 04/27/2024 Provider Alberto Assessments Encounter Date Diagnosis (ICD Code) Assessment Notes Treatment Notes Treatment Clinical Notes Section Notes 07/03/2024 Allergic rhinitis due to pollen (ICD-10 - J30.1) 07/31/2024 Allergic rhinitis due to pollen (ICD-10 - J30.1) 08/27/2024 Allergic rhinitis due to pollen (ICD-10 - J30.1) 10/29/2024 Allergic rhinitis due to pollen (ICD-10 - J30.1) 11/27/2024 Allergic rhinitis due to pollen (ICD-10 - J30.1) 09/25/2024 Allergic rhinitis due to pollen (ICD-10 - J30.1) 06/05/2024 Allergic rhinitis due to pollen (ICD-10 - J30.1) 05/08/2024 Allergic rhinitis due to pollen (ICD-10 - J30.1) 03/20/2024 Allergic rhinitis due to pollen (ICD-10 - J30.1) Mari clearly suffers from atopic disease based upon history and outside skin testing, and she has been doing great on allergen immunotherapy prepared by [facility]. Due to recent symptoms, we discussed repeating skin testing and reformulating immunotherapy, but she would like to continue current plan with immunotherapy from [facility]. Plan to continue immunotherapy for another 18 months to complete 5 years of therapy. She is tolerating SCIT without large local or systemic symptoms. She was instructed to carry her epinephrine autoinjector for 2 hours after leaving the office. 03/20/2024 Allergic rhinitis due to animal (cat) (dog) hair and dander (ICD-10 - J30.81) 01/22/2025 Allergic rhinitis due to pollen (ICD-10 - J30.1) 01/08/2025 Allergic rhinitis due to pollen (ICD-10 - J30.1) Mari clearly suffers from atopic disease based upon history and outside skin testing, and she has been doing great on allergen immunotherapy prepared by [facility]. She is tolerating SCIT without large local or systemic symptoms. She was instructed to carry her epinephrine autoinjector for 2 hours after leaving the office. We discussed that during immunotherapy is normally reduced 10 fold to prevent reactions. We will contact [facility] to see how they want to adjust immunotherapy. 01/08/2025 Allergic rhinitis due to animal (cat) (dog) hair and dander (ICD-10 - J30.81) 01/01/2025 Allergic rhinitis due to pollen (ICD-10 - J30.1) 04/10/2024 Allergic rhinitis due to pollen (ICD-10 - J30.1) 03/07/2024 Allergic rhinitis due to pollen (ICD-10 - J30.1) 03/07/2024 Allergic rhinitis due to animal (cat) (dog) hair and dander (ICD-10 - J30.81) 04/10/2024 Allergic rhinitis due to animal (cat) (dog) hair and dander (ICD-10 - J30.81) 01/01/2025 Allergic rhinitis due to animal (cat) (dog) hair and dander (ICD-10 - J30.81) 01/08/2025 Other allergic rhinitis (ICD-10 - J30.89) Follow allergen avoidance, meds and continue SCIT as an adjunctive treatment to current regimen 01/22/2025 Allergic rhinitis due to animal (cat) (dog) hair and dander (ICD-10 - J30.81) 03/20/2024 Other allergic rhinitis (ICD-10 - J30.89) Follow allergen avoidance, meds and continue SCIT as an adjunctive treatment to current regimen 05/08/2024 Allergic rhinitis due to animal (cat) (dog) hair and dander (ICD-10 - J30.81) 06/05/2024 Allergic rhinitis due to animal (cat) (dog) hair and dander (ICD-10 - J30.81) 09/25/2024 Allergic rhinitis due to animal (cat) (dog) hair and dander (ICD-10 - J30.81) 11/27/2024 Allergic rhinitis due to animal (cat) (dog) hair and dander (ICD-10 - J30.81) 10/29/2024 Allergic rhinitis due to animal (cat) (dog) hair and dander (ICD-10 - J30.81) 08/27/2024 Allergic rhinitis due to animal (cat) (dog) hair and dander (ICD-10 - J30.81) 07/31/2024 Allergic rhinitis due to animal (cat) (dog) hair and dander (ICD-10 - J30.81) 07/03/2024 Allergic rhinitis due to animal (cat) (dog) hair and dander (ICD-10 - J30.81) 07/03/2024 Other allergic rhinitis (ICD-10 - J30.89) 07/31/2024 Other allergic rhinitis (ICD-10 - J30.89) 08/27/2024 Other allergic rhinitis (ICD-10 - J30.89) 10/29/2024 Other allergic rhinitis (ICD-10 - J30.89) 11/27/2024 Other allergic rhinitis (ICD-10 - J30.89) 09/25/2024 Other allergic rhinitis (ICD-10 - J30.89) 06/05/2024 Other allergic rhinitis (ICD-10 - J30.89) 05/08/2024 Other allergic rhinitis (ICD-10 - J30.89) 03/20/2024 Other chronic allergic conjunctivitis (ICD-10 - H10.45) Given ocular signs and symptoms I encouraged allergy avoidance measures and meds as above. If symptoms persist, consider adding additional medications including intraocular antihistamine/mas t cell stabilizer, PRN 01/22/2025 Other allergic rhinitis (ICD-10 - J30.89) 01/08/2025 Other chronic allergic conjunctivitis (ICD-10 - H10.45) Given ocular signs and symptoms I encouraged allergy avoidance measures and meds as above. If symptoms persist, consider adding additional medications including intraocular antihistamine/mas t cell stabilizer, PRN 01/01/2025 Other allergic rhinitis (ICD-10 - J30.89) 04/10/2024 Other allergic rhinitis (ICD-10 - J30.89) 03/07/2024 Other allergic rhinitis (ICD-10 - J30.89) 03/07/2024 Other chronic allergic conjunctivitis (ICD-10 - H10.45) 04/10/2024 Other chronic allergic conjunctivitis (ICD-10 - H10.45) 01/01/2025 Other chronic allergic conjunctivitis (ICD-10 - H10.45) 01/22/2025 Other chronic allergic conjunctivitis (ICD-10 - H10.45) 05/08/2024 Other chronic allergic conjunctivitis (ICD-10 - H10.45) 06/05/2024 Other chronic allergic conjunctivitis (ICD-10 - H10.45) 09/25/2024 Other chronic allergic conjunctivitis (ICD-10 - H10.45) 11/27/2024 Other chronic allergic conjunctivitis (ICD-10 - H10.45) 10/29/2024 Other chronic allergic conjunctivitis (ICD-10 - H10.45) 08/27/2024 Other chronic allergic conjunctivitis (ICD-10 - H10.45) 07/31/2024 Other chronic allergic conjunctivitis (ICD-10 - H10.45) 07/03/2024 Other chronic allergic conjunctivitis (ICD-10 - H10.45) Plan Of Treatment Next Appt Details Provider Name:Kandis mccurdy, 02/19/2025 12:30:00 PM, 2022 [employer], [address], [address], Provider Name:Kandis mccurdy, 06/04/2025 01:00:00 PM, 2022 [employer], [address], [address], Insurance Providers Payer Name Payer Address Payer Phone Subscriber Number Group Number Insured Name Patient Relationship to Insured Coverage Start Date Coverage End Date [facility] [address] [place] [address] [id number] Mari Ybarra Self - patient is the insured 4 Medical (General) History Medical History History ICD Code Anxiety Depression Allergic rhinitis due to pollen J30.1 Allergic rhinitis due to animal (cat) (d og) hair and dander J30.81 Other chronic allergic conjunctivitis H1 0.45 Surgical History Surgery Date(Month/Year) Annie
--- OUTSIDE RECORDS SUMMARY | 2025-02-07 01:04 | XMS_ITS | Encounter Summary ---
Author Organization [facility] Address [address] [place] [address] Care Team Providers Care Screw Eye Assembler Name Role Phone Farnaz Brown Primary Care Provider [phone] Encounter Details Date Type Department Care Team (Late st Contact Info) Description 05/13/2024 [employer] Message Enc [facility] Family Medicine - [place] [address] [facility], [address] [place] [phone] [place] [address] [address] Start Metformin Social History Tobacco Use Types Packs/Day Years Used Date Smoking Tobacco: Never Passive Smoke Exposure: Past Smokeless Tobacco: Never Alcohol Use Standard Drinks/Week Comments Yes 0 (1 standard drink = 0.6 oz pur e alcohol) PHQ-2 Answer Date Recorded Patient Health Questionnaire-2 Score 0 12/06/2023 Comments No Sex and Gender Information Value Date Recorded Sex Assigned at Female 12/04/2024 7:44 AM JUKEBOX ROUTE DRIVER Legal Sex Female 12:08 PM JUKEBOX ROUTE DRIVER Gender Identity Female 12/04/2024 7:44 AM JUKEBOX ROUTE DRIVER Sexual Orientation Not on file documented as of this encounter Plan of Treatment Not on file documented as of this encounter Visit Diagnoses Not on filedocumented in this encounter Care Teams Screw Eye Assembler Relationship Specialty Start Date End Date Farnaz Brown APNP [address] [place] [phone] PCP - General 12/06/23 documented as of this encounter
--- OUTSIDE RECORDS SUMMARY | 2025-02-07 01:04 | XMS_ITS ---
Author Organization [facility] Address [address] [place] [address] Care Team Providers Care Instrument Tester Name Role Phone Farnaz Brown Primary Care Provider Kandis West Unavailable [phone] REASON FOR VISIT and allergy shots Encounters Encounter Location Date Provider Diagnosis [address] [address] 01/08/2025 Kandis Pedersen Plan Of Treatment Next Appt Details Provider Name:Kandis mccurdy, 02/19/2025 12:30:00 PM, 2022 [facility], [address], [address], Provider Name:Kandis mccurdy, 06/04/2025 01:00:00 PM, 2022 [facility], [address] [place] [address], [phone], Progress Notes * Constantine YBARRAB:1995 ([age] yo F)Acc No.[id number]:01/08/2025 Patient: Rosmery CANTRELLa :1995 A ge:29 Y S ex:Female Address:[address] [place] [phone] * true * Date: Generated for Printi ng/Faxing/eTransmitting on: 0 02/07/2025 01:03 AM CDT
--- OUTSIDE RECORDS SUMMARY | 2025-02-07 01:04 | XMS_ITS ---
Author Organization [facility] Address [address] [place] [address] Care Team Providers Care Supervisor Lead Burning Name Role Phone Farnaz Brown Primary Care Provider Kandis West Unavailable [phone] REASON FOR VISIT Encounters Encounter Location Date Provider Diagnosis [address] [address] 01/15/2025 Kandis Pedersen Plan Of Treatment Next Appt Details Provider Name:Kandis mccurdy, 02/19/2025 12:30:00 PM, 2022 [facility], [address] [place] [address], [phone], Provider Name:Kandis mccurdy, 06/04/2025 01:00:00 PM, 2022 [facility], [address], [phone], Progress Notes * Constantine YBARRAB:1995 ([age] yo F)Acc No.[id number]:01/15/2025 Patient: Rosmery CANTRELLa :1995 A ge:29 Y S ex:Female Address:[address] [place] [phone] * true * Date: Generated for Printi ng/Faxing/eTransmitting on: 0 02/07/2025 01:04 AM CDT
--- OUTSIDE RECORDS SUMMARY | 2025-02-07 01:04 | XMS_ITS | Encounter Summary ---
Author Organization [facility] Address [address] [place] [address] Care Team Providers Care Practice Clinician Name Role Phone Farnaz Brown Primary Care Provider [phone] Encounter Details Date Type Department Care Team (Late st Contact Info) Description 09/02/2024 [employer] Message Enc [facility] Medical Group Family & Internal Medicine [facility] [address] [place] [address] Farnaz Brown APNP [address] [place] [address] Refill Scopolamine Social History Tobacco Use Types Packs/Day Years Used Date Smoking Tobacco: Never Passive Smoke Exposure: Past Smokeless Tobacco: Never Alcohol Use Standard Drinks/Week Comments Yes 0 (1 standard drink = 0.6 oz pur e alcohol) PHQ-2 Answer Date Recorded Patient Health Questionnaire-2 Score 0 12/06/2023 Comments No Sex and Gender Information Value Date Recorded Sex Assigned at Female 12/04/2024 7:44 AM SCIENTIFIC DIVER Legal Sex Female 12:08 PM SCIENTIFIC DIVER Gender Identity Female 12/04/2024 7:44 AM SCIENTIFIC DIVER Sexual Orientation Not on file documented as of this encounter Progress Notes * MARY LOU Garcia - 09/03/2024 4:46 PM CDT Meds filled documented in this encounter Plan of Treatment Not on file documented as of this encounter Visit Diagnoses Diagnosis Motion sickness- Primary documented in this encounter Care Teams Practice Clinician Relationship Specialty Start Date End Date Farnaz Brown APNP [address] [place], [place] [id number] PCP - General 12/06/23 documented as of this encounter
--- OUTSIDE RECORDS SUMMARY | 2025-02-07 01:04 | XMS_ITS | Clinical Summary ---
Author Organization [facility] Address [address] [place] [address] Care Team Providers Care Microarray Specialist Name Role Phone Farnaz Brown Primary Care [...] 28.9 in adult 08/07/2024 Bipolar 2 disorder ([facility]) 11/11/2016 Anxiety 11/11/2016 Encounters Date Type Department Care Team Description 01/08/2025 Scan [facility] Scanned, Doc [facility] Lab (SCAN) 12/23/2024 Grounded[employer]hart Message Enc [facility] Medical Group Family & Internal Medicine [address] [phone] Farnaz Brown APNP Next Steps Other Than XRay 12/11/2024 Telephone [facility] Family & Internal Medicine [address] [phone] Farnaz Brown APNP Lab Results 12/04/2024 7:40 AM HUMAN CAPITAL ANALYST Office Visit [facility] Family & Internal [address] [phone] Farnaz Brown APNP Physical 12/04/2024 - 12/04/2024 11:59 PM HUMAN CAPITAL ANALYST Hospital Encounter [facility] [address] [place] [address] Farnaz Brown APNP Discharge Disposition: Home or Self Care (Routine Discharge) 12/04/2024 Travel 11/18/2024 Telephone [facility] Family & Internal [address] [phone] Farnaz Brown APNP Information from Last 3 Months Immunizations Name Administration [...] Sex Assigned at Female 12/04/2024 7:44 AM HUMAN CAPITAL ANALYST Legal Sex Female 12:08 PM HUMAN CAPITAL ANALYST Gender Identity Female 12/04/2024 7:44 AM HUMAN CAPITAL ANALYST Sexual Orientation Not on file Last Filed Vital Signs Vital Sign Reading Time Taken Comments Blood Pressure 112/68 12/04/2024 7:44 AM HUMAN CAPITAL ANALYST Pulse 81 12/04/2024 7:44 AM HUMAN CAPITAL ANALYST Temperature 36.2 C (97.2 F) 12/04/2024 7:44 AM HUMAN CAPITAL ANALYST Respiratory Rate 16 12/04/2024 7:44 AM HUMAN CAPITAL ANALYST Oxygen Saturation 98% 12/04/2024 7:44 AM HUMAN CAPITAL ANALYST Inhaled Oxygen Concentration - - Weight 84.3 kg (185 lb 12.8 oz) 12/04/2024 7:44 AM HUMAN CAPITAL ANALYST Height 167.6 cm (5' 6 ) 12/04/2024 7:44 AM HUMAN CAPITAL ANALYST Body Mass Index 29.99 12/04/2024 7:44 AM HUMAN CAPITAL ANALYST Plan of Treatment Health Maintenance Due Date [...] 07/29/2022 Hepatitis C Completed 12/04/2024 PHQ-2 (Physician [facility]) Completed 12/04/2024 HPV Vaccines Aged Out No [...] Procedure Name Priority Date/Time Associated Diagnosis Comments OUTSIDE LAB (SCAN ORDER) 01/08/2025 OUTSIDE LAB (SCAN ORDER) 01/08/2025 OUTSIDE LAB (SCAN ORDER) 01/08/2025 OUTSIDE LAB (SCAN ORDER) 01/08/2025 OUTSIDE LAB (SCAN ORDER) 01/08/2025 COLLECTION VENOUS BLOOD VENIPUNCTURE Routine 12/04/2024 8:30 AM HUMAN CAPITAL ANALYST General medical exam BMI 29.0-29.9,adult Need for hepatitis C screening test Paresthesias COMPREHENSIVE METABOLIC PANEL Routine 12/04/2024 8:30 AM HUMAN CAPITAL ANALYST General medical exam CBC W/DIFF AUTOMATED Routine 12/04/2024 8:30 AM HUMAN CAPITAL ANALYST General medical exam LIPID PANEL Routine 12/04/2024 8:30 AM HUMAN CAPITAL ANALYST General medical exam TSH W/REFLEX Routine 12/04/2024 8:30 AM HUMAN CAPITAL ANALYST General medical exam HEPATITIS C ANTIBODY Routine 12/04/2024 8:30 AM HUMAN CAPITAL ANALYST General medical exam BMI 29.0-29.9,adult Need for hepatitis C screening test VITAMIN B-12 Routine 12/04/2024 8:30 AM HUMAN CAPITAL ANALYST Paresthesias from Last 3 Months Results * OUTSIDE LAB (SCAN ORDER) (01/08/2025) Only the most recent of5 resultswithin the time period is included. 01/08/2025 us Doc [facility] Scanned SCANNING Final Resu lt * TSH W/REFLEX (12/04/2024 8:30 AM HUMAN CAPITAL ANALYST) TSH 1.863 0.358 - 3.740 uIU/ML 12/04/2024 4:13 PM HUMAN CAPITAL ANALYST [facility] 12/04/2024 8:30 AM HUMAN CAPITAL ANALYST [facility] Final Resul t Performing Organization Address City/[facility]/ZIP Co de Phone Number [address] [address], [place] [phone] * VITAMIN B-12 (12/04/2024 8:30 AM HUMAN CAPITAL ANALYST) VITAMIN B12 S/P/B 872 193 - 986 PG/ML 12/04/2024 4:13 PM HUMAN CAPITAL ANALYST [facility] 12/04/2024 8:30 AM HUMAN CAPITAL ANALYST Farnaz [facility] Final Resul t Performing Organization Address City/[facility] Co de Phone Number [address] [address], [place] [phone] * (ABNORMAL) COMPREHENSIVE METABOLIC PANEL (12/04/2024 8:30 AM HUMAN CAPITAL ANALYST) SODIUM S/P/B 139 136 - 145 MMOL/L 12/04/2024 4:13 PM HUMAN CAPITAL ANALYST [facility] POTASSIUM S/P/B 4.3 3.5 - 5.1 MMOL/L 12/04/2024 4:13 PM HUMAN CAPITAL ANALYST [facility] CHLORIDE S/P/B 102 98 - 107 MMOL/L 12/04/2024 4:13 PM HUMAN CAPITAL ANALYST [facility] CO2 27.7 21 - 32 MMOL/L 12/04/2024 4:13 PM HUMAN CAPITAL ANALYST [facility] GLUCOSE 86 70 - 99 MG/DL 12/04/2024 4:13 PM HUMAN CAPITAL ANALYST [facility] BUN 9 7 - 18 MG/DL 12/04/2024 4:13 PM [facility] CREATININE S/P/B 0.66 0.55 - 1.02 MG/DL 12/04/2024 4:13 PM [facility] CALCIUM S/P/B 8.8 8.4 - 10.5 MG/DL 12/04/2024 4:13 PM [facility] BILIRUBIN TOTAL S/P/B 0.3 0.2 - 1.0 MG/DL 12/04/2024 4:13 PM [facility] ALKALINE PHOSPHATASE S/P/B 50 37 - 98 U/L 12/04/2024 4:13 PM [facility] AST 12(L) 15 - 37 U/L 12/04/2024 4:13 PM [facility] ALT 12(L) 14 - 59 U/L 12/04/2024 4:13 PM [facility] TOTAL PROTEIN S/P/B 6.7 6.4 - 8.2 G/DL 12/04/2024 4:13 PM [facility] ALBUMIN S/P/B 4.0 3.4 - 5.0 G/DL 12/04/2024 4:13 PM [facility] ANION GAP 9.3 5 - 15 MMOL/L 12/04/2024 4:13 PM [facility] Comment:REFERENCE RANGE NOT ESTABLISHED OSMOLALITY (CALC) 286 MOSM/KG 025 4:13 PM [facility] Comment:REFERENCE RANGE NOT ESTABLISHED GFR ESTIMATE >90 >90 ML/MIN/1. 73 M2 12/04/2024 4:13 PM [facility] GFR NOTES GFR REFERENCE S: 12/04/2024 4:13 PM [facility] Comment: THE ESTIMATED GFR IS CALCULATED USING [...] FAILURE: <15 ml/min/1.73 m2 12/04/2024 8:30 AM HUMAN CAPITAL ANALYST us [facility] Final Resul t [facility] [address] [place] [address], [place] [phone] * (ABNORMAL) LIPID PANEL (12/04/2024 8:30 AM HUMAN CAPITAL ANALYST) CHOLESTEROL 181 <200 MG/DL 12/04/2024 4:13 PM HUMAN CAPITAL ANALYST [facility] TRIGLYCERIDES 43 <150 MG/DL 12/04/2024 4:13 PM [facility] HDL 56 >40 MG/DL 12/04/2024 4:13 PM HUMAN CAPITAL ANALYST [facility] LDL-C 116(H) <100 MG/DL 12/04/2024 4:13 PM [facility] VLDL CALCULATION 9 5 - 28 MG/DL 12/04/2024 4:13 PM [facility] CHOL/HDL RATIO 3.2 0.0 - 4.0 12/04/2024 4:13 PM HUMAN CAPITAL ANALYST [facility] LDL/HDL 2.1 0.41 - 2.13 12/04/2024 4:13 PM HUMAN CAPITAL ANALYST [facility] NON HDL CHOLESTEROL 125 <140 MG/DL 12/04/2024 4:13 PM HUMAN CAPITAL ANALYST [facility] 12/04/2024 8:30 AM HUMAN CAPITAL ANALYST Farnaz [facility] Final Resul t [facility] [address] [place] [address], [place] [phone] * HEPATITIS C AB ([facility] ONLY) (12/04/2024 8:30 AM HUMAN CAPITAL ANALYST) HEPATITIS C AB NON-REACTI VE NON-REACT EJ 12/05/2024 10:03 PM HUMAN CAPITAL ANALYST [facility] Comment: ANTIBODIES TO HCV NOT DETECTED. DOES NOT EXCLUDE THE POSSIBILITY OF EXPOSURE TO HCV. 12/04/2024 8:30 AM HUMAN CAPITAL ANALYST Farnaz Stephanie [facility] Final Resul t Performing Organization Address City/[facility] Co de Phone Number [facility] [address] [place] [address], [place] [phone] * CBC W/DIFF AUTOMATED (12/04/2024 8:30 AM HUMAN CAPITAL ANALYST) WBC 5.58 4.00 - 10.80 x10'3/uL 12/04/2024 3:04 PM HUMAN CAPITAL ANALYST [facility] RBC 4.49 4.10 - 5.40 x10'6/uL 12/04/2024 3:04 PM HUMAN CAPITAL ANALYST [facility] HGB 13.4 12.0 - 16.0 G/DL 12/04/2024 3:04 PM HUMAN CAPITAL ANALYST [facility] HCT 40.1 36.0 - 47.0 % 12/04/2024 3:04 PM HUMAN CAPITAL ANALYST [facility] MCV 89.3 78.0 - 100.0 FL 12/04/2024 3:04 PM [facility] MCH 29.8 27.0 - 31.0 PG 12/04/2024 3:04 PM HUMAN CAPITAL ANALYST [facility] MCHC 33.4 33.0 - 36.0 G/DL 12/04/2024 3:04 PM [facility] RDW 11.8 11.5 - 14.5 % 12/04/2024 3:04 PM [facility] PLT 283 150 - 350 x10'3/uL 12/04/2024 3:04 PM [facility] MPV 9.7 7.4 - 10.4 FL 12/04/2024 3:04 PM [facility] DIFFERENTIAL TYPE AUTOMATED DIFFERENTIAL 12/04/2024 3:04 PM [facility] NEUTROPHILS % 52.3 % 12/04/2024 3:04 PM [facility] LYMPHOCYTES % 31.7 % 12/04/2024 3:04 PM [facility] MONOCYTES % 11.3 % 12/04/2024 3:04 PM [facility] EOSINOPHILS % 3.8 % 12/04/2024 3:04 PM [facility] BASOPHILS % 0.7 % 12/04/2024 3:04 PM [facility] IMMATURE GRANS % 0.2 % 12/04/2024 3:04 PM [facility] ABS. NEUTROPHILS 2.92 1.60 - 8.30 x10'3/uL 12/04/2024 3:04 PM [facility] ABS. LYMPHOCYTES 1.77 0.80 - 4.70 x10'3/uL 12/04/2024 3:04 PM [facility] ABS. MONOCYTES 0.63 0.00 - 1.50 x10'3/uL 12/04/2024 3:04 PM [facility] ABS. EOSINOPHILS 0.21 0.00 - 0.40 x10'3/uL 12/04/2024 3:04 PM [facility] ABS. BASOPHILS 0.04 0.00 - 0.20 x10'3/uL 12/04/2024 3:04 PM HUMAN CAPITAL ANALYST -[facility] [place] ABS. IMMATURE GRANULOCYTES 0.01 0.00 - 0.03 x10'3/uL 12/04/2024 3:04 PM HUMAN CAPITAL ANALYST [facility] [place] 12/04/2024 8:30 AM HUMAN CAPITAL ANALYST F[facility] Final Resul t [facility] [place] [address] [facility] [place] [address], [place] [phone] from Last 3 Months Insurance [facility] Care Teams Microarray Specialist Relationship Specialty Start Date End Date Farnaz Brown APNP [address] [place] [address] PCP - General 12/06/23
--- NOTE | 2025-02-07 07:50 | PM.IMHP ---
H&P: HPI History of Present Illness Date/Time: 02/07/25 07:50 Chief Complaint: Sponatanneoues missed Narrative: 29-year-old 010 who presents for management of spontaneous missed . Patient had a pelvic ultrasound that showed intrauterine measuring 7 weeks with no cardiac activity when patient was 7 weeks gestation. The patient denied any pain, cramping, bleeding. Patient opted for surgical management via suction D&C. Review of Systems Cardiovascular: Cardiovascular: Denies chest pain, Denies leg edema, Denies palpitations, Denies dyspnea and Denies dyspnea on exertion Respiratory: Respiratory: Denies cough, Denies dyspnea and Denies dyspnea on exertion Gastrointestinal: Gastrointestinal: Denies abdominal pain, Denies constipation, Denies diarrhea, Denies nausea and Denies vomiting Genitourinary: Genitourinary: Denies hematuria, Denies urinary frequency, Denies dysuria, Denies pelvic pain, Denies urinary incontinence and Denies vaginal discharge Neurologic: Reports system reviewed and no additional complaints, except as documented Psychiatric: Psychiatric: Reports no additional psychiatric complaints Endocrine: Endocrine: Denies palpitations PMFSH Surgical History Surgical History H/O wisdom tooth extraction H/O LEEP Family History Family History Grandparent Diabetes mellitus Social History Social History Smoking status: Never smoker Alcohol intake: current Substance use: current Substance use type: marijuana Do You Feel Safe in your Home?: Yes Lack of Transportation: No Lack of Food: Never True Current Housing: I Have Housing Concerned About Future Housing: No Difficulty Paying Gas/Electric Bills: No Difficulty Paying for Meds: No Currently Unemployed: No Education: Master's Degree or Higher Difficulty w/ Childcare or Family Care: No Living arrangements: with family Occupation/Education: occupation Gender identity (if verbalized by the patient): Female Sexual Orientation (if Verbalized by the Patient): Straight or Heterosexual Meds Home Medications and Allergies Home Medications ?Medication ?Instructions ?Recorded ?Confirmed ?Type levocetirizine 5 mg tablet (Xyzal) 5 mg PO DAILY 01/08/25 02/06/25 History vits no.126-ferrous fum 1 tablet PO DAILY 01/08/25 02/06/25 History 28 mg iron-folic acid 800 mcg tablet (Classic ) Allergies Allergy/AdvReac Type Severity Reaction Status Date / Time No Known Allergies Allergy Verified 02/06/25 13:36 Exam Const: General: no acute distress Eyes: EOM: EOMs intact bilaterally Neck: Neck: supple Thyroid: thyroid normal Chest: Breast/axilla inspection: normal inspection of the breasts Breast/axilla palpation: normal palpation of the breasts, normal palpation of the axillae and no axillary lymphadenopathy Resp: Effort & Inspection: normal respiratory effort Auscultation: clear to auscultation bilaterally Cardio: Rate: regular rate Rhythm: regular rhythm GI: Inspection: non-distended GI Palp: Yes Soft to palpation, No Tenderness to palpation present (GI) and No Guarding due to palpation present (GI) Auscultation: normal bowel sounds : General: No bladder normal to palpation External Female Exam: normal external appearance Speculum Exam - Vagina: normal vaginal discharge and No vaginal bleeding Speculum Exam - Cervix: nontender Bimanual exam- vagina & uterus: No bladder normal to palpation and No Cervical tenderness present OB/external & speculum: No vaginal bleeding Skin: General skin exam: normal color and no rashes or lesions noted Neuro: Cognition (Neuro): normal cognition Speech: normal speech Extrem: General: normal to inspection and no edema Psych: Mental Status: mental status grossly normal Affect: normal affect Assessment and Plan Assessment and plan (1) Missed : Code(s): O02.1 - Missed Status: Acute Assessment and Plan: 29-year-old 010 who presents for suction D&C for management of spontaneous missed Patient presented for outpatient visit and no heart tones were identified Bedside ultrasound confirmed the intrauterine with no cardiac activity Patient was suspected to be 10 weeks gestation with embryo measuring 7 weeks Patient asymptomatic Rh positive Management options reviewed Patient opted for surgical management via suction D&C Risks, benefits, alternatives reviewed Will proceed with the above procedure
[2025-02-07] MEDS: DOXYCYCLINE 100 MG/NS 100 ML 100 MG/100 ML BAG IVPB (12:30)
[2025-02-07 12:34] VITALS: BP 116/72; PULSE 80; TEMP 36.8; O2SAT 100; BMI 29.0
[2025-02-07] MEDS: ACETAMINOPHEN 500 MG TABLET 1000 MG PO (12:37)
--- NOTE | 2025-02-07 13:07 | WPDHPUPDATE1 ---
History and Physical Update Update Date/Time: 02/07/25 13:07 History and Physical has been reviewed, including an updated exam of the patient. There are NO changes in the patient's condition. Risks, benefits, and alternatives have been discussed and questions answered. Patient agrees to proceed with procedure.
--- NOTE | 2025-02-07 13:55 | WPDANESEPPF ---
Anes - Initial Pre Proc Eval Procedure: Operation Date: 02/07/25 13:30 Proposed Procedures p Suction Dilation and Curettage - Mitch Moralez MD Date/Time: 02/07/25 13:55 Surgeon: Mitch Moralez MD Pre Op Diagnosis: missed ab Patient Data Age: 29 Gender: F Height: 1.68 m Weight: 81.8 kg Last Vital Signs Temp 36.8 C 02/07/25 12:34 Pulse 80 02/07/25 12:34 BP 116/72 02/07/25 12:34 Pulse Ox 100 02/07/25 12:34 O2 Del Method Room Air 02/07/25 12:34 Allergies Allergy/AdvReac Type Severity Reaction Status Date / Time No Known Allergies Allergy Verified 02/07/25 12:33 Home Medications ?Medication ?Instructions ?Recorded ?Confirmed ?Type levocetirizine 5 mg tablet (Xyzal) 5 mg PO DAILY 01/08/25 02/06/25 History vits no.126-ferrous fum 1 tablet PO DAILY 01/08/25 02/06/25 History 28 mg iron-folic acid 800 mcg tablet (Classic ) Patient hx anesthesia problems: none Family hx anesthesia problems: none Results Review: All pre-operative results and documents have been reviewed as part of the pre-operative evaluation. [facility] Surgical History Surgical History H/O wisdom tooth extraction H/O LEEP Family History Family History Grandparent Diabetes mellitus Social History Social History Smoking status: Never smoker Alcohol intake: current Substance use: current Substance use type: marijuana Do You Feel Safe in your Home?: Yes Lack of Transportation: No Lack of Food: Never True Current Housing: I Have Housing Concerned About Future Housing: No Difficulty Paying Gas/Electric Bills: No Difficulty Paying for Meds: No Currently Unemployed: No Education: Master's Degree or Higher Difficulty w/ Childcare or Family Care: No Living arrangements: with family Occupation/Education: occupation Gender identity (if verbalized by the patient): Female Sexual Orientation (if Verbalized by the Patient): Straight or Heterosexual Anes - Eval Final PreProcedure Day of Procedure 02/07/25 13:55 Patient weight: overweight Heart: regular rate and rhythm Lungs: clear to auscultation Airway: Mallampati scale Neurological: alert and oriented Last oral intake: >/= 8 hours ASA classification: II Emergent: no Anesthetic plan: proceed Anesthesia type and monitoring: general GIVS and standard monitoring Results Review: All pre-operative results and documents have been reviewed as part of the pre-operative evaluation. Informed Consent: The patient's anesthetic plan and its attendant risks and benefits were discussed with the patient/family/POA. Questions were solicited and answers provided to the satisfaction of the patient/family/POA.
[2025-02-07] MEDS: LACTATED RINGERS 1,000 ML 30 ML IV CONT ×2 (14:02→14:17)
[2025-02-07 14:17] VITALS: BP 114/59; PULSE 75; RESP 14; O2SAT 100
--- NOTE | 2025-02-07 14:19 | W.PM.PROC2 ---
Procedure Note - Detailed Date of Procedure 02/07/25 Pre-op Diagnosis missed ab Post-op Diagnosis Same Procedure Performed Suction Dilation & curettage Surgeon Mitch Moralez MD Anesthesia General Indications spontaneous missed on pelvic US Findings intrauterine products of conception Description of Procedure The patient was taken to the operating room after a missed had been noted on on transvaginal ultrasound. The risks, benefits and alternatives of the procedure were reviewed with the patient and informed consent was obtained. The patient was taken to the OR and anesthesia was noted to be adequate. The patient was placed in the dorsolithotomy position. Pelvic exam was performed with findings noted above. The patient was prepped and draped in the usual sterile fashion. Sterile speculum was placed in the vagina and the cervix was grasped with a tenaculum. The cervix was dilated further to allow for passage of a 8 mm suction curette. The 8 mm suction curette was gently advanced to the fundus, suction was activated, and the tip was rotated while being withdrawn to clear the uterus of products. This suction process was repeated 3 additional times due to the quantity of material in the uterus. The sharp curette was introduced and advanced to the fundus to remove any remaining products. The suction curette was reintroduced one final time to ensure all products had been removed. The tenaculum was removed. Good hemostasis was noted. Instrument, sponge, and sharp counts were correct. Patient tolerated the procedure well and was taken to the recovery room in stable condition. Estimated Blood Loss 20 Drains No Packing No Pathology Yes (products of conception ) Complications No immediate complications Condition Stable Disposition PACU [facility] Billing Surgery - Charge Forward: Surgery Billing
[2025-02-07 14:45] VITALS: BP 108/61; PULSE 59; RESP 14; O2SAT 100
[2025-02-07 15:15] VITALS: BP 110/60; PULSE 62; RESP 14
[2025-02-07] MEDS: DOXYCYCLINE HYCLATE 100 MG TABLET 200 MG PO (15:33)
== END 2025-02-07 15:40 | disposition home or self-care (01) ==
PROVIDERS: PCP Registered Nurse; Visit Provider Student in an Organized Health Care Education/Training Program
PROC: (CPT 59812; principal; 2025-02-07 13:30)
DX: O03.4 Incomplete spontaneous abortion without complication (principal); Z98.890 Other specified postprocedural states; F12.90 Cannabis use, unspecified, uncomplicated
CPT/HCPCS: 59812; 88305; A9270; J2250; J2270; J2704; J7120

== ENCOUNTER 2025-05-21 16:30 | Outpatient (CLI) | payer BC, SELFPAY ==
--- OUTSIDE RECORDS SUMMARY | 2025-05-21 16:33 | XMS_ITS | Encounter Summary ---
Author Organization [facility] Address [address] [place] [address] Phone Care Team Providers Care Requirements Analyst Name Role Phone Provider, None Primary Care Provider Unavailabl e Encounter Details Date Type Department Care Team (Late st Contact Info) Description 11/22/2023 Lab Requisition [facility] Laboratory Services [address] [place] [address], PAC [address] [place] [address] Encounter for pre-employment examination Social History Tobacco Use Types Packs/Day Years Used Date Smoking Tobacco: Never Assessed Comments Unknown Sex and Gender Information Value Date Recorded Sex Assigned at Not on file Legal Sex Female 10:34 AM BRAKE REPAIR SUPERVISOR Gender Identity Not on file Sexual Orientation Not on file documented as of this encounter Plan of Treatment Not on file documented as of this encounter Procedures Procedure Name Priority Date/Time Associated Diagnosis Comments QUANTIFERON-TB GOLD PLUS Routine 11/22/2023 10:00 AM BRAKE REPAIR SUPERVISOR Encounter for pre-employment examination documented in this encounter Results * QUANTIFERON-TB GOLD PLUS (11/22/2023 10:00 AM BRAKE REPAIR SUPERVISOR) NIL CONTROL 0.04 <8.01 IU/mL 11/24/2023 10:27 AM BRAKE REPAIR SUPERVISOR [facility] TB ANTIGEN 1 0.34 <0.35 IU/mL 11/24/2023 10:27 AM BRAKE REPAIR SUPERVISOR [facility] TB ANTIGEN 2 0.01 <0.35 IU/mL 11/24/2023 10:27 AM [facility] MITOGEN CONTROL 9.96 >0.49 IU/mL 11/24/19 10:27 AM [facility] INTEPRETATION TB NEGATIVE NEGATIVE, NEGATIVE (TB antigen response less than 25% of internal negative control value) 11/24/2023 10:27 AM [facility] Comment:No immune response t o Mycobacterium tuberculosis antigens was noted. M. tuberculosis infection unlikely. Blood No Phlebotomy Charged / Unknown 11/22/2023 10:00 AM [facility] 11/22/2023 1:03 PM BRAKE REPAIR SUPERVISOR Narrative [facility] - 11/24/2023 10:27 AM [facility] A POSITIVE QUANTIFERON-TB GOLD PLUS RESULT SHOULD [...] Way PAC IMMUNOLOGY ORDERABLES Final Result [facility] [address] [place] [address], [place] documented in this encounter Visit Diagnoses Diagnosis Encounter for pre-employment examination Health examination of defined subpopulation documented in this encounter Care Teams Requirements Analyst Relationship Specialty Start Date End Date Provider, None [place] PCP - General 11/22/23 documented as of this encounter
--- OUTSIDE RECORDS SUMMARY | 2025-05-21 16:33 | XMS_ITS | Encounter Summary ---
Author Organization [facility] Address [address] [place] [address] Care Team Providers Care Voice Teacher Name Role Phone Farnaz Brown Primary Care Provider [phone] Encounter Details Date Type Department Care Team (Late st Contact Info) Description 09/02/2024 [employer] Message Enc [facility] Medical Group Family & Internal Medicine [facility] [address] [place] [address] Farnaz Brown APNP [address] [place] [address] Refill Scopolamine Social History Tobacco Use Types Packs/Day Years Used Date Smoking Tobacco: Never Passive Smoke Exposure: Past Smokeless Tobacco: Never Alcohol Use Standard Drinks/Week Comments Yes 0 (1 standard drink = 0.6 oz pur e alcohol) PHQ-2 Answer Date Recorded Patient Health Questionnaire-2 Score 0 12/06/2023 Comments No Sex and Gender Information Value Date Recorded Sex Assigned at Female 12/04/2024 7:44 AM SIDEWALK INSPECTOR Legal Sex Female 12:08 PM SIDEWALK INSPECTOR Gender Identity Female 12/04/2024 7:44 AM SIDEWALK INSPECTOR Sexual Orientation Not on file documented as of this encounter Progress Notes * MARY LOU Garcia - 09/03/2024 4:46 PM CDT Meds filled documented in this encounter Plan of Treatment Not on file documented as of this encounter Visit Diagnoses Diagnosis Motion sickness- Primary documented in this encounter Care Teams Voice Teacher Relationship Specialty Start Date End Date Farnaz Brown APNP [address] [place], [place] [id number] PCP - General 12/06/23 documented as of this encounter
--- OUTSIDE RECORDS SUMMARY | 2025-05-21 16:33 | XMS_ITS | Clinical Summary ---
Author Organization [facility] Address [address] [place] [id number] Care Team Providers Care Order Checker Packer Processer Name Role Phone Farnaz Brown Primary Care [...] 28.9 in adult 08/07/2024 Bipolar 2 disorder ([facility]) 11/11/2016 Anxiety 11/11/2016 Immunizations Immunization Administration Dates Next Due FLUCELVAX (ccIIV3, TRIVALENT, 0.5mL) 09/08/2024 Influenza Adult (Generic) 09/24/2023,07/29/2022 MODERNA COVID-19 BIVALENT (1 2+), MRNA, LNP-S, PF 07/29/2022 MODERNA COVID-19 (12+) MRNA, LNP-S, PF, 100 MCG/ 0.5 ML DOSE 09/23/2021,01/22/2021,12/25/2020 MODERNA COVID-19 (12+), MRNA , LNP-S, PF, 50 MCG/0.5 ML (SPIKEVAX) 09/24/2023 Rabies Vaccine 07/17/2018, 8,07/06/2018,2017 Tdap (Generic) 10/28/2021 Family History Medical History [...] Sex Assigned at Female 12/04/2024 7:44 AM MANAGER MARITIME Legal Sex Female 12:08 PM MANAGER MARITIME Gender Identity Female 12/04/2024 7:44 AM MANAGER MARITIME Sexual Orientation Not on file Last Filed Vital Signs Vital Sign Reading Time Taken Comments Blood Pressure 112/68 12/04/2024 7:44 AM MANAGER MARITIME Pulse 81 12/04/2024 7:44 AM MANAGER MARITIME Temperature 36.2 C (97.2 F) 12/04/2024 7:44 AM MANAGER MARITIME Respiratory Rate 16 12/04/2024 7:44 AM MANAGER MARITIME Oxygen Saturation 98% 12/04/2024 7:44 AM MANAGER MARITIME Inhaled Oxygen Concentration - - Weight 84.3 kg (185 lb 12.8 oz) 12/04/2024 7:44 AM MANAGER MARITIME Height 167.6 cm (5' 6) 12/04/2024 7:44 AM MANAGER MARITIME Body Mass Index 29.99 12/04/2024 7:44 AM MANAGER MARITIME Plan of Treatment Health Maintenance Due Date [...] Completed 09/08/2024, 10/2023, 07/29/2022, Additional history exists Hepatitis C Completed 12/04/2024 PHQ-2 (Physician Gilchrist) Completed 12/04/2024 HPV Vaccines Aged Out No longer eligi ble based on patient's age to complete this topic Meningococcal B Vaccine Aged Out No l onger eligible based on patient's age to complete this topic Meningococcal Vaccine Aged Out No jacoby radha eligible based on patient's age to complete this topic Pneumococcal Vaccine: Pediatrics (0 to 5 Years) and At-Risk Patients (6 to 49 Years) Aged Out No longer eligible based on patient's age to complete this topic RSV Immunizations Under 20 Months Aged Out No longer eligible based on patient's age to complete this topic Procedures Procedure Name Priority Date/Time Associated Diagnosis Comments HEPATITIS C ANTIBODY Routine 12/04/2024 8:30 AM MANAGER MARITIME General medical exam BMI 29.0-29.9,adult Need for hepatitis C screening test from Last 3 Months or Most Recently Relevant to Health Maintenance Results * HEPATITIS C AB ([facility] ONLY) (12/04/2024 8:30 AM MANAGER MARITIME) HEPATITIS C AB NON-REACTI VE NON-REACT EJ 12/05/2024 10:03 PM MANAGER MARITIME [facility] Comment: ANTIBODIES TO HCV NOT DETECTED. DOES NOT EXCLUDE THE POSSIBILITY OF EXPOSURE TO HCV. 12/04/2024 8:30 AM MANAGER MARITIME us Farnaz [facility] Final Resul t [facility] [address] [place] [address], [id number] from Last 3 Months or Most Recently Relevant to Health Maintenance Insurance [facility] Care Teams Order Checker Packer Processer Relationship Specialty Start Date End Date Farnaz Brown APNP [address] [place] [address] PCP - General 12/06/23
--- OUTSIDE RECORDS SUMMARY | 2025-05-21 16:33 | XMS_ITS | Clinical Summary ---
Author Organization [facility] Address [address] [place] [phone] Phone Care Team Providers Care Tandem Mill Sticker Name Role Phone Provider, None Primary Care Provider Unavailabl e Social History Tobacco Use Types Packs/Day Years Used Date Smoking Tobacco: Never Assessed Comments Unknown Sex and Gender Information Value Date Recorded Sex Assigned at Not on file Legal Sex Female 10:34 AM SAMPLER OVENS Gender Identity Not on file Sexual Orientation Not on file Plan of Treatment Health Maintenance Due Date Last Done Comments Hepatitis C Virus (HCV) Screening 1995 Hepatitis B Immunization (1 of 3 - 19+ 3-dose series) 2014 Pap Smear 2016 SARS-COV-2 Immunization ( season) 2024 09/24/2023, 07/29/2022, 09/23/2021, Additional history exists Influenza Immunization (Season Ended) 2025 09/24/2023, 07/29/2022 Respiratory Syncytial Virus (RSV) Immunization (Adult) (1 - 1-dose 75+ series) 2070 DTaP/Tdap/Td Immunization Discontinued 10/28/2021 TdaP Immunization Completed 10/28/2021 Human Papillomavirus (HPV) Immunization Aged Out No longer eligible based on patient's age to complete this topic Meningococcal Immunization (ACWY) Aged Out No longer eligible based on patient's age to complete this topic Pneumococcal Immunization Combined Aged Out No longer eligible based on patient's age to complete this topic Rotavirus Immunization Aged Out No lo nger eligible based on patient's age to complete this topic Care Teams Tandem Mill Sticker Relationship Specialty Start Date End Date Provider, Rocio NG PCP - General 11/22/23
--- OUTSIDE RECORDS SUMMARY | 2025-05-21 16:33 | XMS_ITS | Encounter Summary ---
Author Organization [facility] Address [address] [place] [address] Care Team Providers Care Research Engineer Marine Equipment Name Role Phone Farnaz Brown Primary Care Provider [phone] Encounter Details Date Type Department Care Team (Late st Contact Info) Description 05/13/[address] [facility] Family Medicine - [place] [address], [address] [place] [phone] [place] [id number] [address] [address] Start Metformin Social History Tobacco Use Types Packs/Day Years Used Date Smoking Tobacco: Never Passive Smoke Exposure: Past Smokeless Tobacco: Never Alcohol Use Standard Drinks/Week Comments Yes 0 (1 standard drink = 0.6 oz pur e alcohol) PHQ-2 Answer Date Recorded Patient Health Questionnaire-2 Score 0 12/06/2023 Comments No Sex and Gender Information Value Date Recorded Sex Assigned at Female 12/04/2024 7:44 AM BILINGUAL LEGAL ASSISTANT Legal Sex Female 12:08 PM BILINGUAL LEGAL ASSISTANT Gender Identity Female 12/04/2024 7:44 AM BILINGUAL LEGAL ASSISTANT Sexual Orientation Not on file documented as of this encounter Plan of Treatment Not on file documented as of this encounter Visit Diagnoses Not on filedocumented in this encounter Care Teams Research Engineer Marine Equipment Relationship Specialty Start Date End Date Farnaz Brown APNP [address] [place] [id number] PCP - General 12/06/23 documented as of this encounter
[2025-05-21 16:58] LABS: Hematocrit 39.3 % (37.0-47.0); Hemoglobin 13.3 g/dL (12.0-15.0); Mean Corpuscular HGB Conc 33.8 g/dl (32-36); Mean Corpuscular Hemoglobin 30.1 pg (26-34); Mean Corpuscular Volume 88.9 fl (80-100); Platelet Count Result 261 k/mm3 (150-375); Red Blood Count 4.42 M/mm3 (4.2-5.4); White Blood Count 9.5 K/mm3 (4.5-10.0)
[2025-05-21 17:47] LABS: Hepatitis B Surface Antigen Negative (Negative)
[2025-05-21 17:52] LABS: Syphilis IgG/IgM Antibody Non-Reactive (Nonreactive)
[2025-05-21 17:57] LABS: HIV 1/2 Ab P24 Ag Result Negative (Negative)
[2025-05-21 17:58] LABS: Beta HCG Quantitative 43240.00 mIU/ML
[2025-05-23 07:09] LABS: Cytomegalovirus (CMV) Ab, IgG <0.60 U/mL (0.00-0.59); Varicella-Zoster Ab, IgG Reactive (Non Reactive)
== END 2025-05-21 16:31 | disposition home or self-care (01) ==
LOC: ANHLAB 16:31
PROVIDERS: PCP Registered Nurse; Visit Provider Student in an Organized Health Care Education/Training Program
DX: N91.2 Amenorrhea, unspecified (principal)
CPT/HCPCS: 36415; 84702; 85027; 86593; 86644; 86703; 86762; 86787; 86850; 86900; 86901; 87086; 87340; G0432

== ENCOUNTER 2025-08-21 23:25 | Emergency (ER) | payer BC, SELFPAY ==
--- NOTE | ~2025-08-21 | US_ITS ---
BILATERAL LOWER EXTREMITY VENOUS DUPLEX Clinical History: le swelling . Comparison: None. Technique: Grayscale, color, duplex/spectral Doppler sonography bilateral lower extremities. Findings: Bilateral common femoral, femoral, popliteal, and calf veins compressible and color Doppler patent. Normal augmentation with distal compression. No internal echoes. IMPRESSION: 1. No DVT either leg. Reviewed, dictated and finalized at location R. IMPRESSION: 1. No DVT either leg.
[2025-08-21 23:26] VITALS: BP 120/74; PULSE 75; RESP 16; TEMP 36.3; O2SAT 100
--- NOTE | 2025-08-22 03:25 | ED.EXTPRO ---
HPI - Extremity Problem General Chief complaint: Extremity Problem,Nontraumatic <Janeen Burgess APRN - Last Filed: 08/23/25 19:40> Stated complaint: Swollen, painful leg veins, 20 weeks preg <Janeen Burgess APRN - Last Filed: 08/23/25 19:40> Time Seen by Provider: 08/22/25 03:25 <Janeen Burgess APRN - Last Filed: 08/23/25 19:40> Focused HPI: Patient is a 29-year-old female presents to the complaints pain to the back of her thighs. She reports her symptoms started approximately 4 hours ago. Patient reports she has never had these symptoms in the past. She is approximately 20 weeks . Patient endorses a history of varicose veins. She denies any history of blood clots. Patient describes the pain as mostly mild with intermittent sharp pain, associated with swelling. At the time of examination she reports the swelling has gone down some. Patient reports at the start of her symptoms her right posterior thigh was more painful than her left posterior thigh, but then the pain flipped sides. She denies any chest pain, shortness of breath, recent fevers, or urinary symptoms. GENERAL: Well-appearing, well-nourished, and in no acute distress. HEAD: Normocephalic, atraumatic. CHEST: Clear to auscultation. ?No respiratory distress. HEART: Regular rate and rhythm.? NEURO: ?Alert and oriented x3. Patient screened in triage and initial orders placed.? ?Additional care and disposition to be based upon?diagnostic testing and treatment. <Janeen Burgess APRN - Last Filed: 08/23/25 19:40> Related Data Home medications: Home Medications ?Medication ?Instructions ?Recorded ?Confirmed ?Last Taken ?Type levocetirizine 5 mg tablet (Xyzal) 5 mg PO DAILY 01/08/25 08/13/25 Unknown History vits no.126-ferrous fum 1 tablet PO DAILY 01/08/25 08/13/25 Unknown History 28 mg iron-folic acid 800 mcg tablet (Classic ) calcium carbonate (Tums) 168 mg PO TID 06/18/25 08/13/25 Unknown History melatonin 3 mg capsule 3 mg PO QHS 06/18/25 08/13/25 Unknown History polyethylene glycol 3350 17 17 g PO DAILY 06/18/25 08/13/25 Unknown History gram/dose oral powder (Miralax) aspirin 81 mg tablet,delayed 81 mg PO DAILY 07/23/25 08/13/25 Unknown History release (Adult Low Dose Aspirin) <Janeen Burgess APRN - Last Filed: 08/23/25 19:40> Allergies/Adverse reactions: Allergies Allergy/AdvReac Type Severity Reaction Status Date / Time No Known Allergies Allergy Verified 08/21/25 23:26 <Janeen Burgess APRN - Last Filed: 08/23/25 19:40> Review of Systems Review of Systems: A 10 system review of systems was completed on the patient and is negative except for what is stated in the HPI. Nursing and ancillary documentation was reviewed. <Zurdo Mccann DO - Last Filed: 08/22/25 06:49> [facility] Surgical History Surgical History: Surgical History H/O dilation and curettage H/O wisdom tooth extraction H/O LEEP <Janeen Burgess APRN - Last Filed: 08/23/25 19:40> Family History Family History: Family History Grandparent Diabetes mellitus <Janeen Burgess APRN - Last Filed: 08/23/25 19:40> Social History Social History: Social History Smoking status: Never smoker Alcohol intake: current Substance use: current Substance use type: marijuana Do You Feel Safe in your Home?: Yes Lack of Transportation: No Lack of Food: Never True Current Housing: Decline to Answer Concerned About Future Housing: Decline to Answer Difficulty Paying Gas/Electric Bills: Decline to Answer Difficulty Paying for Meds: Decline to Answer Currently Unemployed: Decline to Answer Education: Decline to Answer Difficulty w/ Childcare or Family Care: Decline to Answer Living arrangements: with family Occupation/Education: occupation Gender identity (if verbalized by the patient): Female Sexual Orientation (if Verbalized by the Patient): Straight or Heterosexual Spiritual care concerns: No <Janeen Burgess, AIRCRAFT CHARTER DISPATCHER - Last Filed: 08/23/25 19:40> Exam Narrative: CONST: No acute distress. Well nourished. HENMT: Head is normocephalic and atraumatic. Moist mucous membranes. No posterior oropharynx erythema. EYES: No scleral icterus. No conjunctival injection or pallor. PERRL. NECK: No meningeal signs. RESP: Able to speak in full sentences. Normal respiratory effort. CTAB. CARDIO: Regular rate. Regular rhythm. 2+ DP and radial pulses bilaterally. GI: Nondistended. No tenderness to palpation. Soft. : No CVA tenderness to palpation. SKIN: No rashes or lesions noted on exposed skin. Varicose veins present in the popliteal region. NEURO: Oriented x3. Moves all extremities. EXTREM/MSK/BACK: Trace nonpitting edema of the lower extremities. PSYCH: Normal affect. <Zurdo Mccann DO - Last Filed: 08/22/25 06:49> Course Vital Signs Vital signs: Vital Signs Temperature 36.3 C L 08/21/25 23:26 Pulse Rate 75 08/21/25 23:26 Respiratory Rate 16 08/21/25 23:26 Blood Pressure 120/74 08/21/25 23:26 Pulse Oximetry 100 08/21/25 23:26 Oxygen Delivery Room Air 08/21/25 23:26 Temperature 36.3 C L 08/21/25 23:26 Pulse Rate 72 08/22/25 09:00 Respiratory Rate 15 08/22/25 09:00 Blood Pressure 112/70 08/22/25 09:00 Pulse Oximetry 99 08/22/25 09:00 Oxygen Delivery Room Air 08/21/25 23:26 <Janeen Burgess, AIRCRAFT CHARTER DISPATCHER - Last Filed: 08/23/25 19:40> Vital Signs Temperature 36.3 C L 08/21/25 23:26 Pulse Rate 75 08/21/25 23:26 Respiratory Rate 16 08/21/25 23:26 Blood Pressure 120/74 08/21/25 23:26 Pulse Oximetry 100 08/21/25 23:26 Oxygen Delivery Room Air 08/21/25 23:26 Temperature 36.3 C L 08/21/25 23:26 Pulse Rate 72 08/22/25 09:00 Respiratory Rate 15 10/10/25 09:00 Blood Pressure 112/70 08/22/25 09:00 Pulse Oximetry 99 08/22/25 09:00 Oxygen Delivery Room Air 08/21/25 23:26 <Zurdo Mccann DO - Last Filed: 08/22/25 06:49> Vital Signs Temperature 36.3 C L 08/21/25 23:26 Pulse Rate 75 08/21/25 23:26 Respiratory Rate 16 08/21/25 23:26 Blood Pressure 120/74 08/21/25 23:26 Pulse Oximetry 100 08/21/25 23:26 Oxygen Delivery Room Air 08/21/25 23:26 Temperature 36.3 C L 08/21/25 23:26 Pulse Rate 72 08/22/25 09:00 Respiratory Rate 15 08/22/25 09:00 Blood Pressure 112/70 08/22/25 09:00 Pulse Oximetry 99 08/22/25 09:00 Oxygen Delivery Room Air 08/21/25 23:26 <Butch Osorio MD - Last Filed: 08/22/25 18:05> MDM - Extremity (Nontraumatic) MDM Narrative Medical decision making narrative: Patient presents with the above complaint. Initial vitals are remarkable for no significant abnormalities. Physical examination as noted above. Differential diagnosis includes was not limited to: Varicose veins, dependent edema, venous insufficiency, DVT Plan discussed: Laboratory analysis. D-dimer is elevated at 1.18. Given the proximity to the morning sure decision making performed patient regarding return in the morning time for ultrasounds of the legs wears stand for the ultrasounds of the legs in [place] patient wants the heavy ultrasounds done now. Ultrasound ordered of the legs. CMP is without any significant abnormalities. CBC reveals a white blood cell count 11.5 and hemoglobin 11.3. Patient signed out to oncoming physician pending ultrasound legs. <Zurdo Mccann DO - Last Filed: 08/22/25 06:49> Patient presents with the above complaint. Initial vitals are remarkable for no significant abnormalities. Physical examination as noted above. Differential diagnosis includes was not limited to: Varicose veins, dependent edema, venous insufficiency, DVT Plan discussed: Laboratory analysis. D-dimer is elevated at 1.18. Given the proximity to the morning sure decision making performed patient regarding return in the morning time for ultrasounds of the legs wears stand for the ultrasounds of the legs in [place] patient wants the heavy ultrasounds done now. Ultrasound ordered of the legs. CMP is without any significant abnormalities. CBC reveals a white blood cell count 11.5 and hemoglobin 11.3. Patient signed out to oncoming physician pending ultrasound legs. --- (dmitri) patient care was signed out to me by the overnight physician with ultrasound pending. Ultrasound of bilateral legs was negative for DVT. Patient was updated the results of her workup. Patient was comfortable plan for discharge on follow-up with her OB Gyne and primary care physician. <Butch Osorio MD - Last Filed: 08/22/25 18:05> Lab Data Result diagrams: 08/22/25 03:40 08/22/25 03:40 <Janeen Burgess APRN - Last Filed: 08/23/25 19:40> Labs: Lab Results 08/22/25 Range/Units 03:40 WBC 11.5 H (4.5-10.0) K/mm3 RBC 3.70 L (4.2-5.4) M/mm3 Hgb 11.3 L (12.0-15.0) g/dL Hct 33.0 L (37.0-47.0) % MCV 89.2 (80-100) fl MCH 30.5 (26-34) pg MCHC 34.2 (32-36) g/dl RDW 13.1 (11.5-14.5) % Plt Count 227 (150-375) k/mm3 MPV 8.7 (7.4-10.4) fl Immature Gran % (Auto) 0.7 H (0-0.5) % Neut % (Auto) 62.4 (45.5-73.1) % Lymph % (Auto) 23.4 (18.3-44.2) % Pick[place] % (Auto) 8.5 (2.6-8.5) % Eos % (Auto) 4.6 H (0-4.4) % Baso % (Auto) 0.4 (0.2-1.2) % Lymph # (Auto) 2.69 (0.9-3.2) K/mm3 [place]ens # (Auto) 1.0 H (0.1-0.6) K/mm3 Eos # (Auto) 0.5 H (0-0.3) K/mm3 Baso # (Auto) 0.1 (0.0-0.1) K/mm3 Abs Immat Gran (auto) 0.08 H (0.00-0.031) K/mm3 Absolute Neuts (auto) 7.2 H (1.3-6.7) K/mm3 Absolute Nucleated RBC 0.000 (0.0-0.012) K/mm3 Nucleated RBC % 0.0 (0.0-0.2) % D-Dimer 1.18 H (<0.48) ug/mL Sodium 134 L (137-145) mmol/L Potassium 4.0 (3.4-5.0) mmol/L Chloride 107 (98-107) mmol/L Carbon Dioxide 22 (22-30) mmol/L Anion Gap 5 (4-12) mmol/L BUN 6 L (7-17) mg/dL Creatinine 0.44 L (0.7-1.0) mg/dL Estim Creat Clear Calc Not Reportable Estimated GFR > 60 (59 - ) Glucose 83 (65-110) mg/dL Calcium 8.5 (8.4-10.2) mg/dL Total Bilirubin 0.1 L (0.2-1.3) mg/dL AST 18 (14-36) U/L ALT 6 (6-35) U/L Alkaline Phosphatase 46 (38-126) U/L Total Protein 6.4 (6.3-8.2) g/dL Albumin 3.7 (3.5-5.1) g/dL <Janeen Burgess, AIRCRAFT CHARTER DISPATCHER - Last Filed: 08/23/25 19:40> Lab Results 08/22/25 Range/Units 03:40 WBC 11.5 H (4.5-10.0) K/mm3 RBC 3.70 L (4.2-5.4) M/mm3 Hgb 11.3 L (12.0-15.0) g/dL Hct 33.0 L (37.0-47.0) % MCV 89.2 (80-100) fl MCH 30.5 (26-34) pg MCHC 34.2 (32-36) g/dl RDW 13.1 (11.5-14.5) % Plt Count 227 (150-375) k/mm3 MPV 8.7 (7.4-10.4) fl Immature Gran % (Auto) 0.7 H (0-0.5) % Neut % (Auto) 62.4 (45.5-73.1) % Lymph % (Auto) 23.4 (18.3-44.2) % [place] % (Auto) 8.5 (2.6-8.5) % Eos % (Auto) 4.6 H (0-4.4) % Baso % (Auto) 0.4 (0.2-1.2) % Lymph # (Auto) 2.69 (0.9-3.2) K/mm3 [place] # (Auto) 1.0 H (0.1-0.6) K/mm3 Eos # (Auto) 0.5 H (0-0.3) K/mm3 Baso # (Auto) 0.1 (0.0-0.1) K/mm3 Abs Immat Gran (auto) 0.08 H (0.00-0.031) K/mm3 Absolute Neuts (auto) 7.2 H (1.3-6.7) K/mm3 Absolute Nucleated RBC 0.000 (0.0-0.012) K/mm3 Nucleated RBC % 0.0 (0.0-0.2) % D-Dimer 1.18 H (<0.48) ug/mL Sodium 134 L (137-145) mmol/L Potassium 4.0 (3.4-5.0) mmol/L Chloride 107 (98-107) mmol/L Carbon Dioxide 22 (22-30) mmol/L Anion Gap 5 (4-12) mmol/L BUN 6 L (7-17) mg/dL Creatinine 0.44 L (0.7-1.0) mg/dL Estim Creat Clear Calc Not Reportable Estimated GFR > 60 (59 - ) Glucose 83 (65-110) mg/dL Calcium 8.5 (8.4-10.2) mg/dL Total Bilirubin 0.1 L (0.2-1.3) mg/dL AST 18 (14-36) U/L ALT 6 (6-35) U/L Alkaline Phosphatase 46 (38-126) U/L Total Protein 6.4 (6.3-8.2) g/dL Albumin 3.7 (3.5-5.1) g/dL <Zurdo Mccann, DO - Last Filed: 08/22/25 06:49> Lab Results 08/22/25 Range/Units 03:40 WBC 11.5 H (4.5-10.0) K/mm3 RBC 3.70 L (4.2-5.4) M/mm3 Hgb 11.3 L (12.0-15.0) g/dL Hct 33.0 L (37.0-47.0) % MCV 89.2 (80-100) fl MCH 30.5 (26-34) pg MCHC 34.2 (32-36) g/dl RDW 13.1 (11.5-14.5) % Plt Count 227 (150-375) k/mm3 MPV 8.7 (7.4-10.4) fl Immature Gran % (Auto) 0.7 H (0-0.5) % Neut % (Auto) 62.4 (45.5-73.1) % Lymph % (Auto) 23.4 (18.3-44.2) % [place] % (Auto) 8.5 (2.6-8.5) % Eos % (Auto) 4.6 H (0-4.4) % Baso % (Auto) 0.4 (0.2-1.2) % Lymph # (Auto) 2.69 (0.9-3.2) K/mm3 [place] # (Auto) 1.0 H (0.1-0.6) K/mm3 Eos # (Auto) 0.5 H (0-0.3) K/mm3 Baso # (Auto) 0.1 (0.0-0.1) K/mm3 Abs Immat Gran (auto) 0.08 H (0.00-0.031) K/mm3 Absolute Neuts (auto) 7.2 H (1.3-6.7) K/mm3 Absolute Nucleated RBC 0.000 (0.0-0.012) K/mm3 Nucleated RBC % 0.0 (0.0-0.2) % D-Dimer 1.18 H (<0.48) ug/mL Sodium 134 L (137-145) mmol/L Potassium 4.0 (3.4-5.0) mmol/L Chloride 107 (98-107) mmol/L Carbon Dioxide 22 (22-30) mmol/L Anion Gap 5 (4-12) mmol/L BUN 6 L (7-17) mg/dL Creatinine 0.44 L (0.7-1.0) mg/dL Estim Creat Clear Calc Not Reportable Estimated GFR > 60 (59 - ) Glucose 83 (65-110) mg/dL Calcium 8.5 (8.4-10.2) mg/dL Total Bilirubin 0.1 L (0.2-1.3) mg/dL AST 18 (14-36) U/L ALT 6 (6-35) U/L Alkaline Phosphatase 46 (38-126) U/L Total Protein 6.4 (6.3-8.2) g/dL Albumin 3.7 (3.5-5.1) g/dL <Butch Osorio MD - Last Filed: 08/22/25 18:05> Discharge Plan Discharge Clinical Impression: Leg swelling <Janeen Burgess APRN - Last Filed: 08/23/25 19:40> Patient Disposition: Home <Janeen Burgess APRN - Last Filed: 08/23/25 19:40> Condition: Stable <Janeen Burgess APRN - Last Filed: 08/23/25 19:40> Instructions: Antibiotic Form <Janeen Burgess APRN - Last Filed: 08/23/25 19:40> Patient Language: Chinese <Janeen Burgess APRN - Last Filed: 08/23/25 19:40> Prescriptions: No Action Classic 28 mg iron- 800 mcg tablet 1 tablet PO DAILY levocetirizine [Xyzal] 5 mg tablet 5 mg PO DAILY melatonin 3 mg capsule 3 mg PO QHS calcium carbonate [Tums] 200 mg calcium (500 mg) tablet,chewable 168 mg PO TID polyethylene glycol 3350 [Miralax] 17 gram/dose powder 17 g PO DAILY aspirin [Adult Low Dose Aspirin] 81 mg tablet,delayed release (DR/EC) 81 mg PO DAILY [id number] [Fioricet] 50-300-40 mg capsule 1 cap PO Q6H PRN (Reason: pain) Qty: 30 0RF <Janeen Burgess APRN - Last Filed: 08/23/25 19:40> Follow-up/Referrals: Stephanie,SUSANA Osei [Primary Care Provider] <Janeen Burgess APRN - Last Filed: 08/23/25 19:40>
[2025-08-22 03:46] LABS: Hematocrit 33.0 % (37.0-47.0); Hemoglobin 11.3 g/dL (12.0-15.0); Immature Granulocyte Percent A 0.7 % (0-0.5); Lymphocytes Absolute Auto 2.69 K/mm3 (0.9-3.2); Mean Corpuscular HGB Conc 34.2 g/dl (32-36); Mean Corpuscular Hemoglobin 30.5 pg (26-34); Mean Corpuscular Volume 89.2 fl (80-100); Nucleated Red Blood Cells Absolute Auto 0.000 K/mm3 (0.0-0.012); Nucleated Red Blood Cells Perc 0.0 % (0.0-0.2); Platelet Count Result 227 k/mm3 (150-375); Red Blood Count 3.70 M/mm3 (4.2-5.4); White Blood Count 11.5 K/mm3 (4.5-10.0)
[2025-08-22 04:05] LABS: Alanine Aminotransferase 6 U/L (6-35); Albumin Level 3.7 g/dL (3.5-5.1); Alkaline Phosphatase 46 U/L (38-126); Anion Gap 5 mmol/L (4-12); Aspartate Amino Transferase 18 U/L (14-36); Bilirubin,Total 0.1 mg/dL (0.2-1.3); Blood Urea Nitrogen 6 mg/dL (7-17); Calcium 8.5 mg/dL (8.4-10.2); Carbon Dioxide 22 mmol/L (22-30); Chloride 107 mmol/L (98-107); Estimated Glomerular Filt Rate > 60; Glucose 83 mg/dL (65-110); Potassium 4.0 mmol/L (3.4-5.0); Sodium 134 mmol/L (137-145); Total Protein 6.4 g/dL (6.3-8.2)
[2025-08-22 06:04] VITALS: O2SAT 99
[2025-08-22 06:15] VITALS: O2SAT 98
[2025-08-22 06:30] VITALS: BP 110/69; PULSE 70; RESP 16; O2SAT 99
[2025-08-22 09:00] VITALS: BP 112/70; PULSE 72; RESP 15; O2SAT 99
== END 2025-08-22 08:59 | disposition home or self-care (01) ==
PROVIDERS: Registered Nurse; Emergency Provider Student in an Organized Health Care Education/Training Program; PCP Registered Nurse
DX: O26.892 Other specified pregnancy related conditions, second trimester (principal); R22.43 Localized swelling, mass and lump, lower limb, bilateral; Z3A.20 20 weeks gestation of pregnancy
CPT/HCPCS: 36415; 80053; 85025; 85380; 93970; 99284

== ENCOUNTER 2025-10-10 10:50 | Outpatient (CLI) | payer BC, SELFPAY ==
--- OUTSIDE RECORDS SUMMARY | 2025-01-01 11:30 | XMS_ITS ---
Author Organization [facility] [place] ([address]) Address [address] [place] [address] Care Team Providers Care Boss Dyer Name Role Phone Farnaz Brown Primary Care Provider Unavailabl Kandis Rios Unavailable [phone] REASON FOR VISIT ARC Follow Up/SCIT Social History Sex Assigned At : Social History Observation Description Sex Assigned At Female Encounters Encounter Location Date Provider Diagnosis [facility] [address] [place] [address] 01/01/2025 Kandis Pedersen Plan Of Treatment No Information Progress Notes * Rosmery YBARRAaDOB:1995 (3 0 yo F)Acc No.[id number]:01/01/2025 Progress Notes Patient: Rosmery CANTRELLa Provider: Kailash Pedersen MD :1995 A ge:29 Y S ex:Female Date:01/01/2025 Address:[address], [place] Pcp:Farnaz Brown Subjective: * Chief Complaints: * 1 . ARC Follow Up/SCIT. * Medical History: Objective: * Vitals: Assessment: Plan: * Treatment: * Billing Information: * Visit Code: * Procedure Codes: * Electronic signature of Shannan Pedersen MD on 10/10/2025 at 10:53 AM CELLOPHANE WRAPPING EXAMINER Sign off status: Pending * Provider: Kailash Pedersen MD Date: 0 01/01/2025 Generated for Azeb tejada/Samson/Olinda on: 1 12/10/2024 10:53 AM CELLOPHANE WRAPPING EXAMINER
--- OUTSIDE RECORDS SUMMARY | 2025-10-10 10:53 | XMS_ITS | Encounter Summary ---
Author Organization [facility] Address [address] [place] [address] Care Team Providers Care Roll Weigher Name Role Phone Farnaz Brown Primary Care Provider [phone]- [phone] Encounter Details Date Type Department Care Team (Late st Contact Info) Description 05/13/2024 [employer] Message Enc [facility] Family Medicine - [place] [address], [address] [place] [phone] [place] [address] [address] [address] Start Metformin Social History Tobacco Use Types Packs/Day Years Used Date Smoking Tobacco: Never Passive Smoke Exposure: Past Smokeless Tobacco: Never Alcohol Use Standard Drinks/Week Comments Yes 0 (1 standard drink = 0.6 oz pur e alcohol) PHQ-2 Answer Date Recorded Patient Health Questionnaire-2 Score 0 12/06/2023 Comments No Sex and Gender Information Value Date Recorded Sex Assigned at Female 12/04/2024 7:44 AM BUSINESS OPERATIONS DIRECTOR Legal Sex Female 12:08 PM BUSINESS OPERATIONS DIRECTOR Gender Identity Female 12/04/2024 7:44 AM BUSINESS OPERATIONS DIRECTOR Sexual Orientation Not on file documented as of this encounter Plan of Treatment Not on file documented as of this encounter Visit Diagnoses Not on filedocumented in this encounter Care Teams Roll Weigher Relationship Specialty Start Date End Date Farnaz Brown APNP [address] [place] [address] PCP - General 12/06/23 documented as of this encounter
--- OUTSIDE RECORDS SUMMARY | 2025-10-10 10:53 | XMS_ITS | Clinical Summary ---
Author Organization [facility] Address [address] [place] [address] Phone Care Team Providers Care Cloth Shrinking Tester Name Role Phone Provider, None Primary Care Provider Unavailabl e Social History Tobacco Use Types Packs/Day Years Used Date Smoking Tobacco: Never Assessed Comments Unknown Sex and Gender Information Value Date Recorded Sex Assigned at Not on file Legal Sex Female 10:34 AM RIB CUTTER Gender Identity Not on file Sexual Orientation Not on file Plan of Treatment Health Maintenance Due Date Last Done Comments Hepatitis C Virus (HCV) Screening 1995 Varicella Immunization (1 of 2 - 13+ 2-dose series) 2008 Hepatitis B Immunization (1 of 3 - 19+ 3-dose series) 2014 Pap Smear 2016 Human Papillomavirus (HPV) Immunization (1 - 3-dose SCDM series) 2022 Influenza Immunization (#1) 2025 09/24/2023, 0 07/29/2022 SARS-COV-2 Immunization ( season) 2025 09/24/2023, 07/29/2022, 09/23/2021, Additional history exists Cervical Cancer Screening (CCS) 2025 HPV/Cotest 2025 Respiratory Syncytial Virus (RSV) Immunization (Adult) (1 [...] age to complete this topic Care Teams Cloth Shrinking Tester Relationship Specialty Start Date End Date Provider, None [place] PCP - General 11/22/23
--- OUTSIDE RECORDS SUMMARY | 2025-10-10 10:53 | XMS_ITS | Encounter Summary ---
Author Organization [facility] Address [address] [place] [address] Care Team Providers Care Senior It Security Analyst Name Role Phone Farnaz Brown Primary Care Provider [phone] Encounter Details Date Type Department Care Team (Late st Contact Info) Description 09/02/2024 Sensoristt Message Enc [facility] Family & Internal Medicine [facility] [address] [place] [address] Farnaz Brown APNP [address] [place] [address] Refill Scopolamine Social History Tobacco Use Types Packs/Day Years Used Date Smoking Tobacco: Never Passive Smoke Exposure: Past Smokeless Tobacco: Never Alcohol Use Standard Drinks/Week Comments Yes 0 (1 standard drink = 0.6 oz pur e alcohol) PHQ-2 Answer Date Recorded Patient Health Questionnaire-2 Score 0 12/06/2023 Comments No Sex and Gender Information Value Date Recorded Sex Assigned at Female 12/04/2024 7:44 AM WASTE MANAGEMENT RECYCLING TECHNICIAN Legal Sex Female 12:08 PM WASTE MANAGEMENT RECYCLING TECHNICIAN Gender Identity Female 12/04/2024 7:44 AM WASTE MANAGEMENT RECYCLING TECHNICIAN Sexual Orientation Not on file documented as of this encounter Progress Notes * MARY LOU Garcia - 09/03/2024 4:46 PM CDT Meds filled documented in this encounter Plan of Treatment Not on file documented as of this encounter Visit Diagnoses Diagnosis Motion sickness- Primary documented in this encounter Care Teams Senior It Security Analyst Relationship Specialty Start Date End Date Farnaz Brown APNP [address] [place], [place] [id number] PCP - General 12/06/23 documented as of this encounter
--- OUTSIDE RECORDS SUMMARY | 2025-10-10 10:53 | XMS_ITS | Patient Health Record ---
Author Organization [facility] ([address]) Address [address] [place] [address] Care Team Providers Care Waiter/Waitress Bar Name Role Phone Farnaz Brown Primary Care Provider Kandis West Unavailable [phone] Allergies No Known Allergies Reason For Referral No Information Medications Medication SIG (Take, Route, Frequency, Duration) Notes Start Date End Date Status Metoclopramide HCl 5 MG TAKE 1 TABLET BY MOUTH DAILY Oral; Duration: 30 Days Active Xyzal Allergy 24HR 5 MG 1 tablet in the evening Orally Once a day; Duration: 30 days Active EPINEPHRINE AUTO-INJECTOR 0.3 mg as directed intramuscularly once; Duration: 1 days Active Immunizations Vaccine Route Administration Date Status Comme nts Allergy Immunotherapy Weekly Unknown 03/24/2023 Administered Portal Informati on Social History Tobacco Use: Social History Observation Description Date Details (start date - stop date) Never Smoker NA - NA Sex Assigned At : Social History Observation Description Sex Assigned At Female Smoking Smart Form: Question Answer Notes Are you a: never smoker Tobacco Control (Standard) Question Answer Notes Tobacco use: Nonsmoker AUDIT-C (Standard) Question Answer Notes Did you have a drink containing alcohol in the p ast year? No Points 0 Interpretation Negative Problems Problem Type SNOMED Code ICD Code Onset Dates Problem Status W/U Status Risk Notes Problem Chronic allergic conjunctivitis (65945380) Other chronic allergic conjunctivitis (H10.45) Active confirmed Problem Allergic rhinitis caused by pollen (disorder) (70458685) Allergic rhinitis due to pollen (J30.1) Active confirmed Problem Allergic rhinitis caused by animal hair and dander (310925345287319) Allergic rhinitis due to animal (cat) (dog) hair and dander (J30.81) Active confirmed Problem Allergic rhinitis (91133221) Other allergic rhinitis (J30.89) Active confirmed Problem Allergic rhinitis caused by animal hair and dander (135709028711698) Allergic rhinitis due to animal (cat) (dog) hair and dander (J30.81) Active confirmed Vital Signs Blood pressure diastolic 75 mm Hg 06/04/2025 Oximetry 99 % 06/04/2025 Height 67 in 06/04/2025 Blood pressure systolic 123 mm Hg 06/04/2025 Weight 182.6 lbs 06/04/2025 BMI 28.6 kg/m2 06/04/2025 Encounters Encounter Location Date Provider Diagnosis [address] [address] 05/20/2025 Kandis Pedersen Allergic rhinitis du e to pollen J30.1 ; Allergic rhinitis due to animal (cat) (dog) hair and dander J30.81 ; Other allergic rhinitis J30.89 and Other chronic allergic conjunctivitis H10.45 [facility] [address] [place] [address] 04/23/2025 Kandis Pedersen Allergic rhinitis du e to pollen J30.1 ; Allergic rhinitis due to animal (cat) (dog) hair and dander J30.81 ; Other allergic rhinitis J30.89 and Other chronic allergic conjunctivitis H10.[address] [address] 03/26/2025 Kandis Pedersen Allergic rhinitis du e to pollen J30.1 ; Allergic rhinitis due to animal (cat) (dog) hair and dander J30.81 ; Other allergic rhinitis J30.89 and Other chronic allergic conjunctivitis H10.[address] [address] 02/19/2025 Kandis Pedersen Allergic rhinitis du e to pollen J30.1 ; Allergic rhinitis due to animal (cat) (dog) hair and dander J30.81 ; Other allergic rhinitis J30.89 and Other chronic allergic conjunctivitis H10.45 [facility] [address] [place] [address] [facility] [address] [place] [phone] 01/22/2025 Kandis Pedersen Allergic rhinitis du e to pollen J30.1 ; Allergic rhinitis due to animal (cat) (dog) hair and dander J30.81 ; Other allergic rhinitis J30.89 and Other chronic allergic conjunctivitis H10.45 [facility] [address] [place] [address] [facility] [address] [address] 01/01/2025 Kandis Pedersen Allergic rhinitis du e to pollen J30.1 ; Allergic rhinitis due to animal (cat) (dog) hair and dander J30.81 ; Other allergic rhinitis J30.89 and Other chronic allergic conjunctivitis H10.45 [facility] [address] [place], [place] [address] [address] [address] 11/27/2024 Kandis Pedersen Allergic rhinitis du e to pollen J30.1 ; Allergic rhinitis due to animal (cat) (dog) hair and dander J30.81 ; Other allergic rhinitis J30.89 and Other chronic allergic conjunctivitis H10.45 [facility] [address] [place], [place] [address] [address] [place] [address] 10/29/2024 Kandis Pedersen Allergic rhinitis du e to pollen J30.1 ; Allergic rhinitis due to animal (cat) (dog) hair and dander J30.81 ; Other allergic rhinitis J30.89 and Other chronic allergic conjunctivitis H10.45 [facility] [address] [place] [address] [facility] [address] [address] 06/04/2025 Kandis Pedersen Allergic rhinitis du e to pollen J30.1 ; Allergic rhinitis due to animal (cat) (dog) hair and dander J30.81 ; Other allergic rhinitis J30.89 and Other chronic allergic conjunctivitis H10.45 [facility] [address] [place], [place] [address] [address] [place] [address] 01/08/2025 Kandis Pedersen Allergic rhinitis du e to pollen J30.1 ; Allergic rhinitis due to animal (cat) (dog) hair and dander J30.81 ; Other allergic rhinitis J30.89 and Other chronic allergic conjunctivitis H10.45 [facility] [address] [place] [address] 01/15/2025 Kandis Slava [facility] [address] [place] [address] 01/08/[address] [facility] [address] [place] [address] 12/05/2024 Kandismarjorie Pedersen Assessments Encounter Date Diagnosis (ICD Code) Assessment Notes Treatment Notes Treatment Clinical Notes Section Notes 11/27/2024 Allergic rhinitis due to pollen (ICD-10 - J30.1) 06/04/2025 Allergic rhinitis due to pollen (ICD-10 - J30.1) Mari clearly suffers from atopic disease based upon history and outside skin testing, and she has been doing great on allergen immunotherapy prepared by [facility]. She is currently and would like to discontinue SCIT because she has completed 4.5 years of immunotherapy. 06/04/2025 Allergic rhinitis due to animal (cat) (dog) hair and dander (ICD-10 - J30.81) 05/20/2025 Allergic rhinitis due to pollen (ICD-10 - J30.1) 04/23/2025 Allergic rhinitis due to pollen (ICD-10 - J30.1) 03/26/2025 Allergic rhinitis due to pollen (ICD-10 - J30.1) 02/19/2025 Allergic rhinitis due to pollen (ICD-10 - J30.1) 01/22/2025 Allergic rhinitis due to pollen (ICD-10 [...] - J30.1) 10/29/2024 Allergic rhinitis due to animal (cat) (dog) hair and dander (ICD-10 - J30.81) 01/01/2025 Allergic rhinitis due to animal (cat) (dog) hair and dander (ICD-10 - J30.81) 01/08/2025 Other allergic rhinitis (ICD-10 - J30.89) Follow allergen avoidance, meds and continue SCIT as an adjunctive treatment to current regimen 01/22/2025 Allergic rhinitis due to animal (cat) (dog) hair and dander (ICD-10 - J30.81) 02/19/2025 Allergic rhinitis due to animal (cat) (dog) hair and dander (ICD-10 - J30.81) 03/26/2025 Allergic rhinitis due to animal (cat) (dog) hair and dander (ICD-10 - J30.81) 04/23/2025 Allergic rhinitis due to animal (cat) (dog) hair and dander (ICD-10 - J30.81) 05/20/2025 Allergic rhinitis due to animal (cat) (dog) hair and dander (ICD-10 - J30.81) 06/04/2025 Other allergic rhinitis (ICD-10 - J30.89) 11/27/2024 Allergic rhinitis due to animal (cat) (dog) hair and dander (ICD-10 - J30.81) 11/27/2024 Other allergic rhinitis (ICD-10 - J30.89) 06/04/2025 Other chronic allergic conjunctivitis (ICD-10 - H10.45) Given ocular signs and symptoms I encouraged allergy avoidance measures and meds as above. Continue Pataday as needed 05/20/2025 Other allergic rhinitis (ICD-10 - J30.89) 04/23/2025 Other allergic rhinitis (ICD-10 - J30.89) 03/26/2025 Other allergic rhinitis (ICD-10 - J30.89) 02/19/2025 Other allergic rhinitis (ICD-10 - J30.89) 01/22/2025 Other allergic rhinitis (ICD-10 - J30.89) 01/08/2025 Other chronic allergic conjunctivitis (ICD-10 - H10.45) Given ocular signs and symptoms I encouraged allergy avoidance measures and meds as above. If symptoms persist, consider adding additional medications including intraocular antihistamine/mas t cell stabilizer, PRN 01/01/2025 Other allergic rhinitis (ICD-10 - J30.89) 10/29/2024 Other allergic rhinitis (ICD-10 - J30.89) 10/29/2024 Other chronic allergic conjunctivitis (ICD-10 - H10.45) 01/01/2025 Other chronic allergic conjunctivitis (ICD-10 - H10.45) 01/22/2025 Other chronic allergic conjunctivitis (ICD-10 - H10.45) 02/19/2025 Other chronic allergic conjunctivitis (ICD-10 - H10.45) 03/26/2025 Other chronic allergic conjunctivitis (ICD-10 - H10.45) 04/23/2025 Other chronic allergic conjunctivitis (ICD-10 - H10.45) 05/20/2025 Other chronic allergic conjunctivitis (ICD-10 - H10.45) 11/27/2024 Other chronic allergic conjunctivitis (ICD-10 - H10.45) Plan Of Treatment No Information Insurance Providers Payer Name Payer Address Payer Phone Subscriber Number Group Number Insured Name Patient Relationship to Insured Coverage Start Date Coverage End Date [facility] [id number] [place] [address] [id number] Mari Ybarra Self - patient is the insured 4 Medical (General) History Medical History History ICD Code Anxiety Depression Allergic rhinitis due to pollen J30.1 Allergic rhinitis due to animal (cat) (d og) hair and dander J30.81 Other chronic allergic conjunctivitis H1 0.45 Surgical History Surgery Date(Month/Year) Annie
--- OUTSIDE RECORDS SUMMARY | 2025-10-10 10:53 | XMS_ITS | Encounter Summary ---
Author Organization [facility] Address [address] [place] [address] Phone Care Team Providers Care Farm Or Ranch Animal Caretaker Name Role Phone Provider, None Primary Care Provider Unavailabl e Encounter Details Date Type Department Care Team (Late st Contact Info) Description 11/22/2023 Lab Requisition [facility] [address] [place] [address], [facility] [address] [place] [address] Encounter for pre-employment examination Social History Tobacco Use Types Packs/Day Years Used Date Smoking Tobacco: Never Assessed Comments Unknown Sex and Gender Information Value Date Recorded Sex Assigned at Not on file Legal Sex Female 10:34 AM RN SECURITY Gender Identity Not on file Sexual Orientation Not on file documented as of this encounter Plan of Treatment Not on file documented as of this encounter Procedures Procedure Name Priority Date/Time Associated Diagnosis Comments QUANTIFERON-TB GOLD PLUS Routine 11/22/2023 10:00 AM RN SECURITY Encounter for pre-employment examination documented in this encounter Results * QUANTIFERON-TB GOLD PLUS (11/22/2023 10:00 AM RN SECURITY) NIL CONTROL 0.04 <8.01 IU/mL 11/24/2023 10:27 AM RN SECURITY [facility] TB ANTIGEN 1 0.34 <0.35 IU/mL 11/24/2023 10:27 AM RN SECURITY [facility] TB ANTIGEN 2 0.01 <0.35 IU/mL 11/24/2023 10:27 AM [facility] MITOGEN CONTROL 9.96 >0.49 IU/mL 11/24/19 10:27 AM [facility] INTEPRETATION TB NEGATIVE NEGATIVE, NEGATIVE (TB antigen response less than 25% of internal negative control value) 11/24/2023 10:27 AM [facility] Comment:No immune response t o Mycobacterium tuberculosis antigens was noted. M. tuberculosis infection unlikely. Blood No Phlebotomy Charged / Unknown 11/22/2023 10:00 AM [facility] 11/22/2023 1:03 PM RN SECURITY Narrative [facility] - 11/24/2023 10:27 AM [facility] A POSITIVE QUANTIFERON-TB GOLD PLUS [...] [address] Way PAC IMMUNOLOGY ORDERABLES Final Result [facility] [address] [place] [address], [place] documented in this encounter Visit Diagnoses Diagnosis Encounter for pre-employment examination Health examination of defined subpopulation documented in this encounter Care Teams Farm Or Ranch Animal Caretaker Relationship Specialty Start Date End Date Provider, None [place] PCP - General 11/22/23 documented as of this encounter
--- OUTSIDE RECORDS SUMMARY | 2025-10-10 10:53 | XMS_ITS | Clinical Summary ---
Author Organization [facility] Address [facility] [place] [address] Care Team Providers Care Dry Ice Machine Operator Name Role Phone Farnaz Brown Primary [...] 28.9 in adult 08/07/2024 Bipolar 2 disorder 11/11/2016 Anxiety 11/11/2016 Encounters Date Type Department Care Team Description 08/27/2025 Scan HEALTH INFO [facility]CS Scanned, [facility] Ultrasound (SCAN) 08/22/2025 Scan HEALTH INFO [facility]CS Scanned, [facility] Vascular Lab Study (SCAN); Lab (SCAN) 08/21/2025 Scan HEALTH INFO [facility]VCS Scanned, [facility] from Last 3 Months Immunizations Immunization Administration Dates Next Due FLUCELVAX [...] Sex Assigned at Female 12/04/2024 7:44 AM TANKROOM TENDER Legal Sex Female 12:08 PM TANKROOM TENDER Gender Identity Female 12/04/2024 7:44 AM TANKROOM TENDER Sexual Orientation Not on file Last Filed Vital Signs Vital Sign Reading Time Taken Comments Blood Pressure 112/68 12/04/2024 7:44 AM TANKROOM TENDER Pulse 81 12/04/2024 7:44 AM TANKROOM TENDER Temperature 36.2 C (97.2 F) 12/04/2024 7:44 AM TANKROOM TENDER Respiratory Rate 16 12/04/2024 7:44 AM TANKROOM TENDER Oxygen Saturation 98% 12/04/2024 7:44 AM TANKROOM TENDER Inhaled Oxygen Concentration - - Weight 84.3 kg (185 lb 12.8 oz) 12/04/2024 7:44 AM TANKROOM TENDER Height 167.6 cm (5' 6) 12/04/2024 7:44 AM TANKROOM TENDER Body Mass Index 29.99 12/04/2024 7:44 AM TANKROOM TENDER Plan of Treatment Health Maintenance Due Date Last Done Comments Cervical Cancer Screening Pap Smear (Age 30 to 64) Every 3 Years 1995 HPV Vaccines (1 - 3-dose SCDM series) 2022 COVID-19 Vaccine ( season) 2025 09/08/2024, 09/24/2023, 07/29/2022, Additional history exists Cervical Cancer Screening Pap with HPV Testing (Age 30 to 64) Every 5 Years 2025 Cervical Cancer Screening with HPV 2025 Annual Physical 12/04/2025 12/04/2024 Hepatitis B Vaccines (1 of 3 - 19+ 3-dose series) 12/04/2025 Postponed from 2014 (Awaiting Documentation) DTaP, Tdap and Td Vaccines (2 - Td or Tdap) 10/28/2031 10/28/2021 Hepatitis C Completed 12/04/2024 PHQ-2 (Physician [place]) Completed 12/04/2024 Influenza Adult Completed 08/27/2025, 08/14, 09/24/2023, Additional history exists Hepatitis A Vaccines Aged Out No long er eligible based on patient's age to complete [...] Procedure Name Priority Date/Time Associated Diagnosis Comments ULTRASOUND GENERIC (SCAN ORDER) 08/27/2025 VASCULAR LAB GENERIC (SCAN ORDER) 08/22/2025 OUTSIDE LAB (SCAN ORDER) 08/22/2025 OUTSIDE LAB (SCAN ORDER) 08/22/2025 HEPATITIS C ANTIBODY Routine 12/04/2024 8:30 AM TANKROOM TENDER General medical exam BMI 29.0-29.9,adult Need for hepatitis C screening test from Last 3 Months or Most Recently Relevant to Health Maintenance Results * ULTRASOUND GENERIC (SCAN ORDER) (08/27/2025) Anatomical Region Laterality Modality Other 08/27/2025 [facility] Scanned SCANNING Final Resu lt * VASCULAR LAB GENERIC (SCAN ORDER) (08/22/2025) 08/22/2025 [facility] Scanned SCANNING Final Resu lt * OUTSIDE LAB (SCAN ORDER) (08/22/2025) Only the most recent of2 resultswithin the time period is included. 08/22/2025 [facility] Scanned SCANNING Final Resu lt * HEPATITIS C AB ([facility]) (12/04/2024 8:30 AM TANKROOM TENDER) HEPATITIS C AB NON-REACTI VE NON-REACT EJ 12/05/2024 10:03 PM TANKROOM TENDER [facility] Comment: ANTIBODIES TO HCV NOT DETECTED. DOES NOT EXCLUDE THE POSSIBILITY OF EXPOSURE TO HCV. 12/04/2024 8:30 AM TANKROOM TENDER [facility] Final Resul t [facility] [address] [place] [address], [id number] from Last 3 Months or Most Recently Relevant to Health Maintenance Insurance [facility] Care Teams Dry Ice Machine Operator Relationship Specialty Start Date End Date Farnaz Brown APNP [address] [place] [phone] PCP - General 12/06/23
[2025-10-10 12:10] LABS: Hematocrit 31.4 % (37.0-47.0); Hemoglobin 10.8 g/dL (12.0-15.0); Mean Corpuscular HGB Conc 34.4 g/dl (32-36); Mean Corpuscular Hemoglobin 31.4 pg (26-34); Mean Corpuscular Volume 91.3 fl (80-100); Platelet Count Result 223 k/mm3 (150-375); Red Blood Count 3.44 M/mm3 (4.2-5.4); White Blood Count 11.1 K/mm3 (4.5-10.0)
[2025-10-10 12:40] LABS: Glucose 1 Hour PP 50gm Dose 94 mg/dL
[2025-10-10 12:58] LABS: Syphilis IgG/IgM Antibody Non-Reactive (Nonreactive)
[2025-10-10 13:13] LABS: HIV 1/2 Ab P24 Ag Result Negative (Negative)
== END 2025-10-10 10:51 | disposition home or self-care (01) ==
LOC: ANHLAB 10:51
PROVIDERS: PCP Registered Nurse; Visit Provider Student in an Organized Health Care Education/Training Program
DX: Z34.90 Encounter for supervision of normal pregnancy, unspecified, unspecified trimester (principal); Z3A.00 Weeks of gestation of pregnancy not specified
CPT/HCPCS: 36415; 82947; 85027; 86593; 86703; G0432